=== PATIENT | female | born 1945 | race Caucasian/White ===

== ENCOUNTER 2020-06-02 08:17 | Outpatient (CLI) | payer OTHER, SELFPAY ==
[2020-06-02 08:48] LABS: Hematocrit 31.8 % (37.0-47.0); Hemoglobin 10.3 g/dL (12.0-15.0)
[2020-06-02 08:58] LABS: Hemoglobin A1C 5.9 % (<5.7)
[2020-06-02 08:59] LABS: Blood Urea Nitrogen 33 mg/dL (7-17); Calcium 8.9 mg/dL (8.4-10.2); Carbon Dioxide 21 mmol/L (22-30); Chloride 108 mmol/L (98-107); Cholesterol 200 mg/dL (0-200); Estimated Glomerular Filt Rate 23; Glucose 114 mg/dL (65-105); HDL Direct 48 mg/dL; Potassium 4.5 mmol/L (3.4-5.0); Sodium 137 mmol/L (137-145); Triglycerides 162 mg/dL (<150)
[2020-06-02 09:10] LABS: LDL Cholesterol Direct 100 mg/dL
== END 2020-06-02 08:18 | disposition home or self-care (01) ==
PROVIDERS: PCP Internal Medicine; Visit Provider Internal Medicine
DX: D64.9 Anemia, unspecified (principal); I10 Essential (primary) hypertension; E11.21 Type 2 diabetes mellitus with diabetic nephropathy; E78.5 Hyperlipidemia, unspecified; E55.9 Vitamin D deficiency, unspecified
CPT/HCPCS: 36415; 80048; 80061; 82306; 82607; 83036; 85014; 85018

== ENCOUNTER 2020-07-11 09:44 | Outpatient (CLI) | payer OTHER, SELFPAY ==
[2020-07-11 11:03] LABS: Creatinine Urine 76.9 mg/dL; Total Protein Urine Random 18 mg/dL
[2020-07-11 11:04] LABS: Albumin Level 3.9 g/dL (3.5-5.1); Anion Gap 8 mmol/L (8-16); Blood Urea Nitrogen 25 mg/dL (7-17); Calcium 8.5 mg/dL (8.4-10.2); Carbon Dioxide 23 mmol/L (22-30); Chloride 105 mmol/L (98-107); Estimated Glomerular Filt Rate 23; Glucose 119 mg/dL (65-105); Phosphorus 2.8 mg/dL (2.5-4.5); Potassium 4.1 mmol/L (3.4-5.0); Sodium 136 mmol/L (137-145)
[2020-07-11 11:16] LABS: Parathyroid Intact 211.7 pg/mL (7.5-53.5)
== END 2020-07-11 09:45 | disposition home or self-care (01) ==
LOC: ANHLAB 09:46
PROVIDERS: PCP Internal Medicine; Visit Provider Internal Medicine Nephrology
DX: I12.9 Hypertensive chronic kidney disease with stage 1 through stage 4 chronic kidney disease, or unspecified chronic kidney disease (principal); N18.4 Chronic kidney disease, stage 4 (severe); E11.29 Type 2 diabetes mellitus with other diabetic kidney complication; R80.8 Other proteinuria
CPT/HCPCS: 36415; 80069; 82570; 83970; 84156

== ENCOUNTER 2020-11-06 09:42 | Outpatient (CLI) | payer OTHER, SELFPAY ==
[2020-11-06 10:19] LABS: Albumin Level 3.7 g/dL (3.5-5.1); Anion Gap 7 mmol/L (8-16); Blood Urea Nitrogen 26 mg/dL (7-17); Calcium 8.6 mg/dL (8.4-10.2); Carbon Dioxide 25 mmol/L (22-30); Chloride 103 mmol/L (98-107); Estimated Glomerular Filt Rate 22; Glucose 122 mg/dL (65-105); Phosphorus 2.9 mg/dL (2.5-4.5); Sodium 135 mmol/L (137-145)
[2020-11-06 10:23] LABS: Creatinine Urine 136.6 mg/dL; Total Protein Urine Random 26 mg/dL; Ur Ttl Prot Creatinine Ratio 0.19 mg/mg (0-0.20)
[2020-11-06 10:32] LABS: Parathyroid Intact 196.4 pg/mL (7.5-53.5)
[2020-11-06 11:04] LABS: Vitamin D 25 Hydroxy 63.4 ng/mL
== END 2020-11-06 09:43 | disposition home or self-care (01) ==
PROVIDERS: PCP Internal Medicine; Visit Provider Internal Medicine Nephrology
DX: N18.4 Chronic kidney disease, stage 4 (severe) (principal); I12.9 Hypertensive chronic kidney disease with stage 1 through stage 4 chronic kidney disease, or unspecified chronic kidney disease; E11.29 Type 2 diabetes mellitus with other diabetic kidney complication; R80.8 Other proteinuria
CPT/HCPCS: 36415; 80069; 82306; 82570; 83970; 84156

== ENCOUNTER 2020-12-04 09:49 | Outpatient (CLI) | payer OTHER, SELFPAY ==
[2020-12-04 10:58] LABS: Alanine Aminotransferase 9 U/L (4-35); Albumin Level 3.7 g/dL (3.5-5.1); Alkaline Phosphatase 112 U/L (38-126); Anion Gap 4 mmol/L (8-16); Aspartate Amino Transferase 19 U/L (14-36); Bilirubin,Total 0.4 mg/dL (0.2-1.3); Blood Urea Nitrogen 28 mg/dL (7-17); Calcium 8.4 mg/dL (8.4-10.2); Carbon Dioxide 27 mmol/L (22-30); Chloride 104 mmol/L (98-107); Cholesterol 230 mg/dL (0-200); Estimated Glomerular Filt Rate 24; Glucose 123 mg/dL (65-105); HDL Direct 52 mg/dL; Potassium 4.1 mmol/L (3.4-5.0); Sodium 135 mmol/L (137-145); Triglycerides 156 mg/dL (<150)
[2020-12-04 11:02] LABS: Hemoglobin A1C 5.8 % (<5.7)
[2020-12-04 11:12] LABS: LDL Cholesterol Direct 129 mg/dL
[2020-12-04 11:40] LABS: Vitamin D 25 Hydroxy 54.8 ng/mL
== END 2020-12-04 09:50 | disposition home or self-care (01) ==
PROVIDERS: PCP Internal Medicine; Visit Provider Nurse Practitioner
DX: E78.49 Other hyperlipidemia (principal); E11.9 Type 2 diabetes mellitus without complications; E53.8 Deficiency of other specified B group vitamins; E55.9 Vitamin D deficiency, unspecified
CPT/HCPCS: 36415; 80053; 80061; 82306; 82607; 83036

== ENCOUNTER 2022-05-15 11:46 | Outpatient (CLI) | payer MEDICARE, SELFPAY ==
[2022-05-15 12:41] LABS: Albumin Level 4.1 g/dL (3.5-5.1); Anion Gap 8 mmol/L (8-16); Blood Urea Nitrogen 46 mg/dL (7-17); Calcium 9.1 mg/dL (8.4-10.2); Carbon Dioxide 22 mmol/L (22-30); Chloride 104 mmol/L (98-107); Estimated Glomerular Filt Rate 22; Glucose 115 mg/dL (65-110); Potassium 4.4 mmol/L (3.4-5.0); Sodium 134 mmol/L (137-145)
[2022-05-15 12:54] LABS: Parathyroid Intact 82.7 pg/mL (7.5-53.5)
[2022-05-15 13:07] LABS: Creatinine Urine 72.3 mg/dL; Total Protein Urine Random 11 mg/dL; Ur Ttl Prot Creatinine Ratio 0.15 mg/mg (0-0.20)
[2022-05-15 13:17] LABS: Vitamin D 25 Hydroxy 59.8 ng/mL
== END 2022-05-15 11:47 | disposition home or self-care (01) ==
PROVIDERS: PCP Internal Medicine; Visit Provider Internal Medicine Nephrology
DX: N18.4 Chronic kidney disease, stage 4 (severe) (principal); E11.29 Type 2 diabetes mellitus with other diabetic kidney complication; I12.9 Hypertensive chronic kidney disease with stage 1 through stage 4 chronic kidney disease, or unspecified chronic kidney disease; E55.9 Vitamin D deficiency, unspecified
CPT/HCPCS: 36415; 80069; 82306; 82570; 83970; 84156

== ENCOUNTER 2022-09-25 13:07 | Outpatient (CLI) | payer MEDICARE, SELFPAY ==
[2022-09-25 13:54] LABS: Anion Gap 14 mmol/L (8-16); Blood Urea Nitrogen 41 mg/dL (7-17); Calcium 8.4 mg/dL (8.4-10.2); Carbon Dioxide 23 mmol/L (22-30); Chloride 100 mmol/L (98-107); Estimated Glomerular Filt Rate 22; Glucose 107 mg/dL (65-110); Phosphorus 3.4 mg/dL (2.5-4.5); Potassium 4.3 mmol/L (3.4-5.0); Sodium 137 mmol/L (137-145)
[2022-09-25 13:58] LABS: Creatinine Urine 75.9 mg/dL; Total Protein Urine Random 15 mg/dL
== END 2022-09-25 13:08 | disposition home or self-care (01) ==
LOC: ANHLAB 13:09
PROVIDERS: PCP Internal Medicine; Visit Provider Internal Medicine Nephrology
DX: N18.4 Chronic kidney disease, stage 4 (severe) (principal); I12.9 Hypertensive chronic kidney disease with stage 1 through stage 4 chronic kidney disease, or unspecified chronic kidney disease; E11.29 Type 2 diabetes mellitus with other diabetic kidney complication; R80.8 Other proteinuria
CPT/HCPCS: 36415; 80069; 82570; 84156

== ENCOUNTER 2022-11-06 10:01 | Outpatient (CLI) | payer MEDICARE, SELFPAY ==
[2022-11-06 11:03] LABS: Alanine Aminotransferase 9 U/L (6-35); Albumin Level 4.1 g/dL (3.5-5.1); Alkaline Phosphatase 76 U/L (38-126); Anion Gap 8 mmol/L (8-16); Aspartate Amino Transferase 18 U/L (14-36); Bilirubin,Total 0.3 mg/dL (0.2-1.3); Blood Urea Nitrogen 30 mg/dL (7-17); Calcium 8.5 mg/dL (8.4-10.2); Carbon Dioxide 24 mmol/L (22-30); Chloride 101 mmol/L (98-107); Cholesterol 264 mg/dL (0-200); Estimated Glomerular Filt Rate 23; Glucose 107 mg/dL (65-110); HDL Direct 54 mg/dL; Potassium 4.2 mmol/L (3.4-5.0); Sodium 133 mmol/L (137-145); Triglycerides 177 mg/dL (<150)
[2022-11-06 11:13] LABS: LDL Cholesterol Direct 112 mg/dL
[2022-11-06 11:18] LABS: Hemoglobin A1C 5.7 % (<5.7)
[2022-11-06 11:19] LABS: Creatinine Urine 98.4 mg/dL
[2022-11-06 11:23] LABS: MALB Creatinine Ratio 51.6 mg/g (0-30); Microalbumin Urine Random 50.8 mg/L (0-16.7)
== END 2022-11-06 10:02 | disposition home or self-care (01) ==
PROVIDERS: PCP Internal Medicine; Visit Provider Internal Medicine
DX: E78.5 Hyperlipidemia, unspecified (principal); I10 Essential (primary) hypertension; E11.21 Type 2 diabetes mellitus with diabetic nephropathy
CPT/HCPCS: 36415; 80053; 80061; 82043; 83036

== ENCOUNTER 2023-02-05 11:52 | Outpatient (CLI) | payer MEDICARE, SELFPAY ==
[2023-02-05 12:33] LABS: Creatinine Urine 59.4 mg/dL; Total Protein Urine Random 14 mg/dL; Ur Ttl Prot Creatinine Ratio 0.24 mg/mg (0-0.20)
[2023-02-05 12:40] LABS: Albumin Level 4.1 g/dL (3.5-5.1); Anion Gap 8 mmol/L (8-16); Blood Urea Nitrogen 36 mg/dL (7-17); Calcium 9.2 mg/dL (8.4-10.2); Carbon Dioxide 22 mmol/L (22-30); Chloride 105 mmol/L (98-107); Estimated Glomerular Filt Rate 21; Glucose 94 mg/dL (65-110); Phosphorus 3.9 mg/dL (2.5-4.5); Potassium 4.7 mmol/L (3.4-5.0); Sodium 135 mmol/L (137-145)
[2023-02-05 13:06] LABS: Vitamin D 25 Hydroxy 53.6 ng/mL
[2023-02-05 20:05] LABS: Parathyroid Intact 66.1 pg/mL (7.5-53.5)
== END 2023-02-05 11:53 | disposition home or self-care (01) ==
PROVIDERS: PCP Internal Medicine; Visit Provider Internal Medicine Nephrology
DX: N18.4 Chronic kidney disease, stage 4 (severe) (principal); E11.22 Type 2 diabetes mellitus with diabetic chronic kidney disease; I12.9 Hypertensive chronic kidney disease with stage 1 through stage 4 chronic kidney disease, or unspecified chronic kidney disease; E55.9 Vitamin D deficiency, unspecified; N25.81 Secondary hyperparathyroidism of renal origin
CPT/HCPCS: 36415; 80069; 82306; 82570; 83970; 84156

== ENCOUNTER 2023-05-07 17:00 | Outpatient (CLI) | payer MEDICARE, SELFPAY ==
[2023-05-07 19:39] LABS: Hemoglobin A1C 5.4 % (<5.7)
[2023-05-08 12:20] LABS: Alanine Aminotransferase 12 U/L (6-35); Albumin Level 4.1 g/dL (3.5-5.1); Alkaline Phosphatase 86 U/L (38-126); Anion Gap 11 mmol/L (8-16); Aspartate Amino Transferase 19 U/L (14-36); Bilirubin,Total 0.3 mg/dL (0.2-1.3); Blood Urea Nitrogen 27 mg/dL (7-17); Calcium 8.8 mg/dL (8.4-10.2); Carbon Dioxide 22 mmol/L (22-30); Chloride 102 mmol/L (98-107); Cholesterol 237 mg/dL (0-200); Estimated Glomerular Filt Rate 23; Glucose 101 mg/dL (65-110); HDL Direct 54 mg/dL; LDL Cholesterol Direct 117 mg/dL; Potassium 4.1 mmol/L (3.4-5.0); Sodium 135 mmol/L (137-145); Triglycerides 169 mg/dL (<150)
== END 2023-05-07 17:01 | disposition home or self-care (01) ==
LOC: ANHLAB 17:02
PROVIDERS: PCP Internal Medicine; Visit Provider Nurse Practitioner
DX: E78.5 Hyperlipidemia, unspecified (principal); E11.21 Type 2 diabetes mellitus with diabetic nephropathy; E55.9 Vitamin D deficiency, unspecified
CPT/HCPCS: 36415; 80053; 80061; 82306; 83036

== ENCOUNTER 2023-06-11 12:55 | Outpatient (CLI) | payer MEDICARE, SELFPAY ==
[2023-06-11 13:45] LABS: Creatinine Urine 50.4 mg/dL; Total Protein Urine Random 13 mg/dL; Ur Ttl Prot Creatinine Ratio 0.26 mg/mg (0-0.20)
[2023-06-11 13:47] LABS: Anion Gap 8 mmol/L (8-16); Blood Urea Nitrogen 32 mg/dL (7-17); Calcium 9.3 mg/dL (8.4-10.2); Carbon Dioxide 26 mmol/L (22-30); Chloride 104 mmol/L (98-107); Estimated Glomerular Filt Rate 21; Glucose 117 mg/dL (65-110); Potassium 5.1 mmol/L (3.4-5.0); Sodium 138 mmol/L (137-145)
== END 2023-06-11 12:56 | disposition home or self-care (01) ==
PROVIDERS: PCP Family Medicine; Visit Provider Internal Medicine Nephrology
DX: E11.22 Type 2 diabetes mellitus with diabetic chronic kidney disease (principal); I12.9 Hypertensive chronic kidney disease with stage 1 through stage 4 chronic kidney disease, or unspecified chronic kidney disease; N18.4 Chronic kidney disease, stage 4 (severe)
CPT/HCPCS: 36415; 80069; 82570; 84156

== ENCOUNTER 2023-10-15 12:51 | Outpatient (CLI) | payer MEDICARE, SELFPAY ==
[2023-10-15 13:36] LABS: Creatinine Urine 61.6 mg/dL; Total Protein Urine Random 13 mg/dL; Ur Ttl Prot Creatinine Ratio 0.21 mg/mg (0-0.20)
[2023-10-15 13:39] LABS: Albumin Level 3.7 g/dL (3.5-5.1); Anion Gap 11 mmol/L (8-16); Blood Urea Nitrogen 30 mg/dL (7-17); Carbon Dioxide 19 mmol/L (22-30); Chloride 96 mmol/L (98-107); Estimated Glomerular Filt Rate 23; Glucose 137 mg/dL (65-110); Phosphorus 3.6 mg/dL (2.5-4.5); Potassium 4.3 mmol/L (3.4-5.0); Sodium 126 mmol/L (137-145)
[2023-10-15 13:51] LABS: Parathyroid Intact 55.3 pg/mL (7.5-53.5)
[2023-10-15 14:17] LABS: Vitamin D 25 Hydroxy 80.3 ng/mL
== END 2023-10-15 12:52 | disposition home or self-care (01) ==
PROVIDERS: PCP Family Medicine; Visit Provider Internal Medicine Nephrology
DX: E55.9 Vitamin D deficiency, unspecified (principal); E11.22 Type 2 diabetes mellitus with diabetic chronic kidney disease; N25.81 Secondary hyperparathyroidism of renal origin; I12.9 Hypertensive chronic kidney disease with stage 1 through stage 4 chronic kidney disease, or unspecified chronic kidney disease; N18.9 Chronic kidney disease, unspecified
CPT/HCPCS: 36415; 80069; 82306; 82570; 83970; 84156

== ENCOUNTER 2023-11-04 10:30 | Outpatient (CLI) | payer MEDICARE, SELFPAY ==
--- NOTE | ~2023-11-04 | XR_ITS ---
Clinical Indication: Tachycardia, shortness of breath PA and lateral views of the chest: Comparison: None Findings: The lungs are clear, without evidence of focal consolidation or pleural effusion. Cardiome diastinal silhouette is within normal limits. Bones and soft tissues are unremarkable. Impression: Normal chest. Reviewed, dictated and finalized at location . OR REGULATORY AFFAIRS SPECIALIST Impression: Normal chest.
[2023-11-04 11:25] LABS: Immature Granulocyte Absolute 0.09 K/mm3 (0.00-0.031); Immature Granulocyte Percent A 2.5 % (0-0.5); Immature Platelet Fraction Pct 1.6 % (0.9-11.2); Lymphocytes Absolute Auto 0.68 K/mm3 (0.9-3.2); Lymphocytes Percent Auto 19.2 % (18.3-44.2); Mean Corpuscular HGB Conc 31.1 g/dl (32-36); Mean Corpuscular Hemoglobin 37.7 pg (26-34); Mean Corpuscular Volume 121.3 fl (80-100); Mean Platelet Volume 9.6 fl (7.4-10.4); Monocytes Absolute Auto 2.3 K/mm3 (0.1-0.6); Monocytes Percent Auto 65.8 % (2.6-8.5); Neutrophils Absolute Auto 0.4 K/mm3 (1.3-6.7); Neutrophils Percent Auto 12.5 % (45.5-73.1); Nucleated Red Blood Cells Absolute Auto 0.1 K/mm3 (0.0-0.012); Nucleated Red Blood Cells Perc 2.5 % (0.0-0.2); Platelet Count Result 34 k/mm3 (150-375); Red Blood Count 1.22 M/mm3 (4.2-5.4); White Blood Count 3.5 K/mm3 (4.5-10.0)
[2023-11-04 11:32] LABS: Hemoglobin 4.6 g/dL (12.0-15.0)
[2023-11-04 11:33] LABS: Hematocrit 14.8 % (37.0-47.0)
[2023-11-04 11:35] LABS: Alanine Aminotransferase 12 U/L (6-35); Albumin Level 3.7 g/dL (3.5-5.1); Alkaline Phosphatase 70 U/L (38-126); Anion Gap 13 mmol/L (8-16); Aspartate Amino Transferase 16 U/L (14-36); Bilirubin,Total 0.4 mg/dL (0.2-1.3); Blood Urea Nitrogen 35 mg/dL (7-17); Calcium 8.3 mg/dL (8.4-10.2); Carbon Dioxide 17 mmol/L (22-30); Chloride 101 mmol/L (98-107); Estimated Glomerular Filt Rate 19; Glucose 144 mg/dL (65-110); Potassium 4.5 mmol/L (3.4-5.0); Sodium 131 mmol/L (137-145)
[2023-11-04 11:43] LABS: NT Pro B Type Natriuretic Pept 4090 pg/mL (19.9-100)
== END 2023-11-04 10:31 | disposition home or self-care (01) ==
LOC: ANHLAB 10:37
PROVIDERS: PCP Family Medicine; Visit Provider Nurse Practitioner Family
DX: R06.02 Shortness of breath (principal); R00.0 Tachycardia, unspecified
CPT/HCPCS: 36415; 71046; 80053; 83880; 85025; 85055

== ENCOUNTER 2023-11-04 12:23 | Inpatient (IN) | payer MEDICARE, SELFPAY ==
[2023-11-04] VITALS (14 sets, daily range): BP systolic 120–189; BP diastolic 45–109; PULSE 92–111; RESP 9–20; TEMP 36.4–37.1; O2SAT 100
--- NOTE | ~2023-11-04 | BM_ITS ---
EXAMINATION: CCL bone marrow asp w bx diag DATE: 11/06/2023 16:23 INDICATION: Pancytopenia. TECHNIQUE: A time-out was performed to verify the patient's name, date of , and procedure to b e performed. The procedure including the risks, benefits, and alternatives was discussed with the pat ient. Risks discussed included bleeding and infection. The patient understood the risks and agreed to proceed. The skin overlying the left ilium was prepped and draped in usual sterile fashion. Anesth etic was administered with 1% lidocaine subcutaneously. Moderate sedation was achieved with 1 mg Vers ed IV and 50 mcg fentanyl IV. An 11 gauge needle was inserted into the ilium with fluoroscopic kiet nce. Bone marrow was aspirated. An 8 gauge needle was then inserted into the ilium with fluoroscopic guidance. A core bone marrow biopsy was obtained. There were no immediate complications. Fluoroscopy exposure time was 0.0 minutes. The total number of images was 6. FINDINGS: Real-time fluoroscopy demonstrates a marker overlying the left posterior superior iliac spi ne. IMPRESSION: 1. Fluoro-guided bone marrow aspiration. 2. Fluoro-guided bone marrow core biopsy. Reviewed, dictated and finalized at location A. CAL CLAIMS REPRESENTATIVE
--- NOTE | ~2023-11-04 | XR_ITS ---
EXAMINATION: [id number]_[id number] DATE: 11/07/2023 13:12 INDICATION: Left knee injury and pain. TECHNIQUE: 2 views of left knee were obtained. COMPARISON: None. FINDINGS: Bone alignment is normal. No fracture. There is moderate osteoarthritis of medial compartme nt and mild osteoarthritis of lateral and patellofemoral compartments. There is a moderate-sized knee joint effusion. IMPRESSION: 1. Moderate left knee osteoarthritis. 2. Moderate-sized left knee joint effusion. Reviewed, dictated and finalized at location A. FICIAL STONE SETTER
--- NOTE | ~2023-11-04 | XR_ITS ---
EXAMINATION: XR femur LT min 2V DATE: 11/07/2023 13:12 INDICATION: Left thigh injury and pain. TECHNIQUE: 2 views of left femur on 4 radiographs were obtained. COMPARISON: None. FINDINGS: Bone alignment is normal. No fracture. There is moderate left knee osteoarthritis. There is a moderate-sized knee joint effusion. IMPRESSION: 1. Moderate left knee osteoarthritis. 2. Moderate-sized left knee joint effusion. Reviewed, dictated and finalized at location A. MASTER/MISTRESS
--- NOTE | ~2023-11-04 | CT_ITS ---
EXAMINATION: CT abdomen pelvis wo con DATE: 11/04/2023 21:20 INDICATION: crissy hematuria, weakness, anemia TECHNIQUE: Computed tomography (CT) of the abdomen and pelvis was performed without intravenous contr ast. Automated exposure control and iterative reconstruction technique were employed. The dose-length product was 1326.88 mGy-cm. COMPARISON: None. FINDINGS: Lower thorax: Coronary artery and aortic valve calcification Liver: Normal. Biliary/Gallbladder: Gallbladder is normal. No bile duct dilation. Pancreas: No mass or duct dilation. Spleen: Normal. Adrenals:No mass. Kidneys: Left renal atrophy. Nonobstructing 2 mm left upper pole calcification. Subcentimeter right m idpole hyperdensity, likely proteinaceous or hemorrhagic cyst. 6 mm calcification in a mildly dilated right upper pole calyx, which does not appear to obstruct the calyx. 3 mm nonobstructing right midpo le calcification. No hydronephrosis or suspicious mass. GI tract: No small or large bowel dilation. Normal appendix. Mesentery/Peritoneum: No ascites, mass, or free air. Retroperitoneum: No mass. Pelvis: Pelvic organs are within normal limits. Subcentimeter right ovarian cyst which requires no ad ditional evaluation at this time. Soft Tissues: Soft tissues and body wall unremarkable. Bones: No acute osseous finding. IMPRESSION: Bilateral nephrolithiasis. 6 mm renal stone in a presumably chronically mildly dilated right upper pole calyx. No distal stones or evidence of obstructive uropathy. No acute abdominopelvic process detected. Reviewed, dictated and finalized at location K. GE REPAIRER IMPRESSION: Bilateral nephrolithiasis. 6 mm renal stone in a presumably chronically mildly dilated right upper pole ca lyx. No distal stones or evidence of obstructive uropathy. No acute abdominopelvic process detected.
--- NOTE | ~2023-11-04 | XR_ITS ---
EXAMINATION: XR hip LT 2V w AP pelvis DATE: 11/07/2023 13:12 INDICATION: Left hip injury and pain. TECHNIQUE: An anteroposterior view of the pelvis and 2 views of left hip were obtained. COMPARISON: None. FINDINGS: Bone alignment is normal. No fracture. There is mild right hip osteoarthritis. There is sev ere lumbar spondylosis. IMPRESSION: 1. No fracture. Reviewed, dictated and finalized at location A. DENCE SUPERVISOR IMPRESSION: 1. No fracture.
--- NOTE | 2023-11-04 12:38 | ECG_ITS ---
Measurements Intervals [place] Rate: 110 P: 96 CA: 131 QRS: -1 QRSD: 82 T: 148 QT: 303 QTc: 411 Interpretive Statements SINUS TACHYCARDIA LOW QRS VOLTAGE [QRS DEFLECTION < 0.5/1.0 mV IN LIMB/CHEST LEADS] POSSIBLE INFERIOR MYOCARDIAL INFARCTION , PROBABLY OLD [30 ms Q WAVE IN II/aVF] ABNORMAL ECG NO PREVIOUS ECG AVAILABLE FOR COMPARISON Electronically Signed On 11-05-2023 10:28:18 MECHANICAL DETAILER by Joaquín Duque M.D.
[2023-11-04 13:02] LABS: Immature Granulocyte Absolute 0.12 K/mm3 (0.00-0.031); Immature Granulocyte Percent A 4.6 % (0-0.5); Immature Platelet Fraction Pct 1.4 % (0.9-11.2); Lymphocytes Absolute Auto 0.54 K/mm3 (0.9-3.2); Lymphocytes Percent Auto 20.7 % (18.3-44.2); Mean Corpuscular HGB Conc 30.8 g/dl (32-36); Mean Corpuscular Hemoglobin 37.2 pg (26-34); Mean Corpuscular Volume 120.7 fl (80-100); Monocytes Absolute Auto 1.6 K/mm3 (0.1-0.6); Monocytes Percent Auto 61.3 % (2.6-8.5); Neutrophils Absolute Auto 0.4 K/mm3 (1.3-6.7); Neutrophils Percent Auto 13.4 % (45.5-73.1); Nucleated Red Blood Cells Absolute Auto 0.1 K/mm3 (0.0-0.012); Nucleated Red Blood Cells Perc 2.7 % (0.0-0.2); Platelet Count Result 33 k/mm3 (150-375); Red Blood Count 1.21 M/mm3 (4.2-5.4); Red Cell Distribution Width 14.9 % (11.5-14.5); White Blood Count 2.6 K/mm3 (4.5-10.0)
[2023-11-04 13:11] LABS: Alanine Aminotransferase 11 U/L (6-35); Albumin Level 3.7 g/dL (3.5-5.1); Alkaline Phosphatase 79 U/L (38-126); Anion Gap 13 mmol/L (8-16); Aspartate Amino Transferase 17 U/L (14-36); Bilirubin,Total 0.4 mg/dL (0.2-1.3); Blood Urea Nitrogen 36 mg/dL (7-17); Calcium 8.4 mg/dL (8.4-10.2); Carbon Dioxide 17 mmol/L (22-30); Chloride 99 mmol/L (98-107); Estimated CRCL calculation 20 ml/min; Estimated Glomerular Filt Rate 20; Glucose 146 mg/dL (65-110); Potassium 4.4 mmol/L (3.4-5.0); Sodium 129 mmol/L (137-145)
[2023-11-04 13:15] LABS: Hematocrit 14.6 % (37.0-47.0); Hemoglobin 4.5 g/dL (12.0-15.0)
[2023-11-04 13:39] LABS: Hypochromasia 3+ (NORMAL); Platelet Estimate Decreased (Adequate); Schistocytes None Seen (NORMAL)
[2023-11-04 13:40] LABS: Stomatocytes 2+ (NORMAL)
--- NOTE | 2023-11-04 14:03 | ED.RECABL ---
HPI - Recheck/Abnormal Lab/Rx General Chief Complaint: Recheck/Abnormal Lab/Rx Stated Complaint: needs transfusion Time Seen by Provider: 11/04/23 13:16 History of Present Illness HPI narrative: Patient is a 78-year-old female who presents emergency department this afternoon from a doctor's office due to concern for anemia with a hemoglobin of 4.5. Patient's provider called our facility and did inform us that the patient is coming. Patient denies any history of GI bleed is currently denying hemoptysis, hematemesis, melena or hematochezia. Patient admits that she has suffered from anemia pretty much all of her life and is a poor historian regarding the nature of her anemia. Patient states that when she was younger before turning 19 she remembers a time period where she needed to go see a doctor and needed to have weekly shots for her anemia but is unsure what those shots. 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 patient has not required any transfusions since then. Patient states that she is otherwise not complaining of any symptoms and states that the only symptom she is mild shortness of breath. Patient denies any additional symptoms including chest pain, nausea, vomiting, abdominal pain, dysuria, hematuria, constipation, diarrhea, melena, hematochezia, fevers or chills. Patient also denies any headaches, dizziness, lightheadedness, blurry visions, focal weakness, numbness and or tingling. There are no other modifying, alleviating, or precipitating factors at this time. Related Data Home Medications Medication Instructions Recorded Confirmed acetaminophen 325 mg tablet 650 mg PO Q6H PRN 12/08/19 11/04/23 (Tylenol) Allergies Allergy/AdvReac Type Severity Reaction Status Date / Time amlodipine Allergy Mild pt does Verified 11/04/23 12:34 not remember atenolol Allergy Mild heart Verified 11/04/23 12:34 racing celecoxib Allergy Mild throat Verified 11/04/23 12:34 swells chlordiazepoxide Allergy Mild pt does Verified 11/04/23 12:34 not remember codeine Allergy Mild pass out Verified 11/04/23 12:34 diazepam Allergy Mild pt does Verified 11/04/23 12:34 not remember furosemide Allergy Mild pt does Verified 11/04/23 12:34 not remember metoprolol Allergy Mild racing Verified 11/04/23 12:34 heart propranolol Allergy Mild racing Verified 11/04/23 12:34 heart rofecoxib Allergy Mild pt does Verified 11/04/23 12:34 not remember Review of Systems Review of Systems: All systems are reviewed and are negative unless stated otherwise in the HPI. [facility] Past Medical History Medical History CKD (chronic kidney disease) Essential (primary) hypertension History of Rodriguez's sarcoma Hyperlipidemia Type 2 diabetes mellitus with diabetic nephropathy, without long-term current use of insulin Family History Family History Mother Diabetes mellitus Hypertension Family history of congestive heart failure, Onset Age: 99 Sibling Family history of lung cancer Social History Social History Smoking status: Former smoker Smoking end date: 11/24/1965 Alcohol intake: never Substance use: never Substance use type: does not use Lack of Transportation: No Lack of Food: Never True Current Housing: I Have Housing Concerned About Future Housing: No Difficulty Paying Gas/Electric Bills: No Difficulty Paying for Meds: YES Currently Unemployed: No Education: High School Diploma/GED Difficulty w/ Childcare or Family Care: No Living arrangements: with family Gender identity (if verbalized by the patient): Female Exam Narrative:
--- NOTE | 2023-11-04 15:40 | PC.NURSE ---
Pt assisted to BSC voided pink tinge urine with small blood clots. Pt denies hematuria prior to ER arrival. Pt states she feels the bleeding is coming from her vagina. Dr. Mcnair informed.
[2023-11-04 15:46] LABS: Iron 136 ug/dL (37-170)
[2023-11-04 15:52] LABS: Transferrin 185 mg/dL (206-381)
[2023-11-04 15:56] LABS: Percent Iron Saturation 57 % (20-50)
[2023-11-04] MEDS: TUBING, BLOOD SET 1 EACH XX (16:01)
[2023-11-04] MEDS: SODIUM CHLORIDE 0.9% IV 250 ML 30 ML IV CONT (16:01)
--- NOTE | 2023-11-04 16:47 | PC.NURSE ---
This patient, Marcela Johnson, was admitted to Medical Room 343-01. Patient/family oriented to hospital policies and general routines including ID bracelet, bed and alarms, visiting hours, pain management, procedures, bathroom and other care routines, personal items, smoking policy, room service/diet, and visiting hours. Information on how to activate the Rapid Response Team has been discussed. Patient/Family are encouraged to report perceived risks to care and to ask questions if they do not understand what they are told or what they should do.
[2023-11-04 16:53] LABS: Folic Acid 5.5 ng/mL (2.76->20)
--- NOTE | 2023-11-04 20:29 | PM.IMHP ---
H&P: HPI History of Present Illness Date/Time: 11/04/23 20:29 Chief Complaint: Anemia, Palpitations/SOB Narrative: 78 y/o F presents here with abnormal labs, palpitations, and SOB with PMH of CKD, HTN, Rodriguez sarcoma (treatment from 2009 to 2012), and HLD. Patient saw her PCP today for weakness. She reported that she has been experiencing palpitations/racing heart and shortness of breath with activity for the past few weeks. First noticed episode of palpitations and shortness of breath on , 10/17. Initial episode was transient and short-lived, resolved without intervention. Initially thought symptoms were related to a injury to her left knee and immobility. Reports anemia history, however unsure what cause was. Followed with a provider to receive weekly shots, unsure what shots were. Has received blood transfusions previously, reports this was related to anemia secondary to chemotherapy for her Rodriguez sarcoma. No anemia or transfusions since end of treatment in 2012. Sought care at primary office today. PCP ordered an EKG, CBC, CMP, and BNP as well as a chest x-ray. Workup revealed a low white count of 3.5, anemia at 4.6, hematocrit of 14.8, MCV 121, low neutrophil count at 12.5, and a platelet count of 34. CXR showed normal chest. Patient was sent to the emergency department and labs were repeated, minimal change. Patient denies hemoptysis, hematemesis, melena, and hematochezia. Review of Systems Review of Systems: All systems reviewed & are unremarkable except as noted in HPI and below PMFSH Past Medical History Medical History (Updated 11/05/23 @ 00:15 by Jeannie Pichardo APRN) CKD (chronic kidney disease) Essential (primary) hypertension History of Rodriguez's sarcoma Hyperlipidemia Type 2 diabetes mellitus with diabetic nephropathy, without long-term current use of insulin Last A1c 5.4 on 05/07/2023. Not currently on medications as of 11/05/2023. Family History Family History Mother Diabetes mellitus Hypertension Family history of congestive heart failure, Onset Age: 99 Sibling Family history of lung cancer Social History Social History Smoking status: Former smoker Smoking end date: 11/24/1965 Alcohol intake: never Substance use: never Substance use type: does not use Lack of Transportation: No Lack of Food: Never True Current Housing: I Have Housing Concerned About Future Housing: No Difficulty Paying Gas/Electric Bills: No Difficulty Paying for Meds: YES Currently Unemployed: No Education: High School Diploma/GED Difficulty w/ Childcare or Family Care: No Living arrangements: with family Gender identity (if verbalized by the patient): Female Spiritual care concerns: No Meds Home Medications and Allergies Home Medications Medication Instructions Recorded Confirmed Type acetaminophen 325 mg tablet 650 mg PO Q6H PRN Pain (Scale 12/08/19 11/04/23 History (Tylenol) Score 1-3) omeprazole 20 mg capsule,delayed 20 mg PO DAILY #90 caps 12/21/20 11/04/23 Rx release lisinopril 20 mg tablet 20 mg PO DAILY #90 tabs 07/08/23 11/04/23 Rx hydrochlorothiazide 25 mg tablet 25 mg PO DAILY #90 tabs 10/27/23 11/04/23 Rx Vitamin D3 10,000 units PO DAILY 11/04/23 11/04/23 History calcitriol 0.25 mcg capsule 0.25 mcg PO DAILY 11/04/23 11/04/23 History Allergies Allergy/AdvReac Type Severity Reaction Status Date / Time amlodipine Allergy Mild pt does Verified 11/04/23 12:34 not remember atenolol Allergy Mild heart Verified 11/04/23 12:34 racing celecoxib Allergy Mild throat Verified 11/04/23 12:34 swells chlordiazepoxide Allergy Mild pt does Verified 11/04/23 12:34 not remember codeine Allergy Mild pass out Verified 11/04/23 12:34 diazepam Allergy Mild pt does Verified 11/04/23 12:34 not remember furo
[2023-11-04 21:22] LABS: Appearance Urine Cloudy (Clear); Bacteria Urine None Seen /hpf; Bilirubin Urine Negative (Negative); Blood Urine 3+ (Negative); Color Urine Yellow (Yellow); Glucose Urine UA Negative (Negative); Ketones Urine Negative (Negative); Leukocyte Esterase Ur Negative LEU/UL (Negative); Nitrate Urine Negative (Negative); Non Pathogenic Casts 0-2; Protein Urine 1+ mg/dL (Negative); Specific Grav Ur 1.012 (1.001-1.035); Squamous Epithelial Cell Urine None seen /hpf (Few); Urobilinogen Urine 0.2 mg/dL (<2.0); WBC Urine 0-5 /hpf; pH Urine 5.5 (5.0-9.0)
[2023-11-04 21:27] LABS: Add Urine Microscopic? YES
[2023-11-04 23:47] LABS: Hemoglobin 6.8 g/dL (12.0-15.0)
[2023-11-04 23:48] LABS: Hematocrit 20.6 % (37.0-47.0)
[2023-11-05] VITALS (10 sets, daily range): BP systolic 123–157; BP diastolic 46–78; PULSE 92–118; RESP 16–21; TEMP 36.4–36.8; O2SAT 98–100
--- NOTE | 2023-11-05 | ECHO_ITS ---
Patient Info Name: Marcela Johnson Age: 78 years : 1945 Gender: Female Ht: 63 in Wt: 208 lbs BSA: 2.09 m2 HR: 102 bpm BP: 149 / 62 mmHg Heart Rhythm: Tachycardia Technical Quality: Good Exam Date: 11/05/2023 8:39 AM Exam Location: Echo Lab Patient Status: Inpatient Admit Date: 11/04/2023 Staff Ordering Physician: Jeannie Pichardo APRN Dining Manager: Dilma Flor RDCS Attending Provider: Marleny Webb MD Referring Physician: Marino CHARLES; Exam Type: CA echo doppler color flow Study Info Indications - lower extremity swelling Complete two-dimensional, color flow and Doppler transthoracic echocardiogram is performed. Summary 1. Complete two-dimensional, color flow and Doppler transthoracic echocardiogram is performed. 2. Left ventricular chamber dimension is normal. 3. Left ventricular systolic function is normal, estimated at 60-65%. 4. There is mildly increased left ventricular wall thickness. 5. Right ventricular systolic function is normal. 6. There is mild mitral valve regurgitation. 7. There is mild tricuspid valve regurgitation. Left Ventricle Left ventricular chamber dimension is normal. Left ventricular systolic function is normal, estimated at 60-65%. There is mildly increased left ventricular wall thickness. Right Ventricle Right ventricular chamber dimension is normal. Right ventricular systolic function is normal. Left Atria Left atrial chamber dimension is normal. Right Atria Right atrial chamber dimension is normal. Atrial Septum Intact interatrial septum visualized by color flow imaging. Aortic Valve The aortic valve is probable trileaflet. There is no aortic valve stenosis. There is no aortic valve regurgitation. There is mild aortic valve calcification. Pulmonic Valve The pulmonic valve is not well visualized. Mitral Valve There is mild mitral valve regurgitation. The mitral valve annulus is mildly calcified. Tricuspid Valve There is mild tricuspid valve regurgitation. Pericardium/Pleural The pericardium appears epicardial fat pad. There is no pericardial effusion. Inferior Vena Cava Normal inferior vena cava with >50% collapse upon inspiration consistent with normal right atrial pressure, 3 mmHg. Aorta The aortic root size at the sinus of Valsalva is normal. Left Ventricular Outflow Tract Name Value Normal LVOT 2D LVOT Diameter 1.9 cm LVOT Doppler LVOT Peak Gradient 3 mmHg LVOT Mean Gradient 2 mmHg LVOT VTI 31 cm LVOT VTI/AV VTI Ratio 1.1 LVOT Stroke Volume 92 ml LVOT CO 8.3 l/min LVOT CI 3.9 l/min/m2 Pulmonic Valve Name Value Normal RVOT Doppler RVOT Peak Gradient 2 mmHg PV Doppler
[2023-11-05] MEDS: ACETAMINOPHEN 325 MG TABLET 650 MG PO ×3 (01:21→20:20)
[2023-11-05 05:50] LABS: Hematocrit 23.5 % (37.0-47.0); Hemoglobin 7.9 g/dL (12.0-15.0)
[2023-11-05] MEDS: CHOLECALCIFEROL 1,000 UNITS TABLET 10000 UNITS PO (08:06)
[2023-11-05] MEDS: FOLIC ACID 1 MG TABLET PO (08:06)
[2023-11-05] MEDS: hydroCHLOROthiazide 25 MG TABLET PO (08:06)
[2023-11-05] MEDS: lisinopriL 20 MG TABLET PO (08:06)
[2023-11-05] MEDS: calcitrioL 0.25 MCG CAPSULE PO (08:06)
[2023-11-05] MEDS: THIAMINE HCL 100 MG TABLET PO (08:06)
[2023-11-05] MEDS: MULTIVITAMINS THERAPEUTIC TAB (*BKC) 1 TABLET PO (08:06)
--- NOTE | 2023-11-05 09:16 | PDONCCN ---
HPI - Date of Consult Date/Time: 11/05/23 17:42 <Emery Florence - 11/05/23 17:44> 11/05/23 09:16 <Maia Cortés - 11/05/23 09:32> Requesting Physician: Marleny Webb MD <Emery Florence - 11/05/23 17:44> Marleny Webb MD <Maia Cortés - 11/05/23 09:32> Primary Care Provider: Robin Romo MD <Emery Florence - 11/05/23 17:44> Robin Romo MD <Maia Cortés - 11/05/23 09:32> - Consult Narrative Reason for consult: Pancytopenia <Maia Cortés - 11/05/23 09:32> Narrative: Marcela Johnson is a 78 year old female <Emery Florence - 11/05/23 17:44> Marcela Johnson is a 78 year old female with a past medical history of DM, HTN, HLD, and Ewings Sarcoma. She was admitted to the hospital after her PCP lorena labs for shortness of breath, heart palpitations and weakness. Her hgb was found to be at 4.5 and she received 3 units of PRBCs. She states she has been anemic since and used to get shots and liquid in her milk that would turn it black as a child. She states her WBC have always been low as well. Most recently, she feels like she pulled a muscle in her L leg and has made it more difficult to ambulate in addition to her new shortness of breath. In the past, she was treated for Rodriguez Sarcoma and completed chemotherapy in March [address] Wagner at [facility]. She had to receive many PRBC during her chemotherapy treatment due to anemia. She reports blood in her urine. Denies blood in her stool. Unsure of the last colonoscopy date. Has stage 4 kidney disease and follows with Dr. Heaton, last appt 10/15/23 and Cr was 2.10, now at 2.40. Denies liver disease or heavy alcohol intake. Her abdominal CT scan shows normal liver and spleen. Her labs are notable for WBC 2.6, Hgb 4.5--7.9, iron 136, % sat 57, ferritin 494, B12 737, Folate 5.5. <Maia Cortés - 11/05/23 09:59> Review of Systems - Review of Systems All systems reviewed & are unremarkable except as noted in HPI and bel <Maia Cortés - 11/05/23 09:32> - Cardiovascular Reports fast heart rate, Reports shortness of breath with activity <Maia Cortés - 11/05/23 09:32> - Respiratory Reports dyspnea on exertion <ArturoMaia joaquin - 11/05/23 09:32> - Genitourinary Reports blood in urine <Maia Cortés 11/05/23 09:32> - Musculoskeletal Reports abnormal walking (with leg pain) <MooMaia - 11/05/23 09:32> [facility] Medical History: Medical History (Last Updated 11/05/23 @ 00:15 by Jeannie Pichardo APRN) CKD (chronic kidney disease) Essential (primary) hypertension History of Rodriguez's sarcoma Hyperlipidemia Type 2 diabetes mellitus with diabetic nephropathy, without long-term current use of insulin Last A1c 5.4 on 05/07/2023. Not currently on medications as of 11/05/2023. <Emery Florence - 11/05/23 17:44> Medical History (Last Updated 11/05/23 @ 00:15 by Jeannie Pichardo APRN) CKD (chronic kidney disease) Essential (primary) hypertension History of Rodriguez's sarcoma Hyperlipidemia Type 2 diabetes mellitus with diabetic nephropathy, without long-term current use of insulin Last A1c 5.4 on 05/07/2023. Not currently on medications as of 11/05/2023. <Maia Cortés - 11/05/23 09:32> Family History: Family History (Last Reviewed 11/04/23 @ 16:54 by Gely Martinez RN) Mother Diabetes mellitus Hypertension Family history of congestive heart failure, Onset Age: 99 Sibling Family history of lung cancer <Emery Florence - 11/05/23 17:44> Family History (Last Reviewed 11/04/23 @ 16:54 by Gely Martinez RN) Mother Diabetes mellitus Hypertension Family history of congestive heart failure, Onset Age: 99 Sibling Family history of lung cancer <Maia Cortés - 11/05/23 09:32> - Social History Social History: Social History (Last Reviewed 11/04/23 @ 14:03 by Ruben Mcnari MD)
[2023-11-05 09:50] LABS: Immature Reticulocyte Fraction 19.9 % (3.0-15.9); Reticulocyte Hemoglobin Conten 36.2 pg (28.2-35.7); Reticulocyte Percent 1.18 % (0.7-4.3); Reticulocytes Absolute 0.03 M/mm3 (0.02-0.1)
[2023-11-05 09:57] LABS: Lactate Dehydrogenase 244 U/L (120-246)
[2023-11-05] MEDS: SPIRONOLACTONE 12.5 MG TABLET PO ×2 (10:31→17:09)
[2023-11-05] MEDS: PANTOPRAZOLE 40 MG TABLET PO (10:40)
--- NOTE | 2023-11-05 10:52 | PM.IMPN ---
Progress Note: A&P Assessment and Plan (1) Pancytopenia: Code(s): D61.818 - Other pancytopenia Status: Acute Assessment and Plan: CBC showed: WBC of 3.5, RBC of 1.22, HGB of 4.6, HCT of 14.8, MCV of 121 3, MCHC of 31.1, RDW of 15.1, platelet count 34. EKG showed sinus tachycardia with rate of 110, low QRS voltage, possible inferior ND (probably old). Awaiting formal read. CXR showed no acute cardiopulmonary pathology. Unclear etiology. Heme Onc consulted, waiting recs. Iron, TIBC, ferritin, B12, folic acid, and thiamine ordered. Add multivitamin, folic acid, and thiamine. Transfused 2 units. Hemoglobin reassessed 4.8 -> 6.8, will give 3rd unit. Monitor vitals and telemetry. Monitor lab work, add TSH. 11/05: hgb 8.5 today, monitor, plt 25, defer transfusion to heme/onc (2) Weakness: Code(s): R53.1 - Weakness Status: Acute Assessment and Plan: High suspicion for weakness secondary to anemia. Given transfusions. Consider PT/OT eval and treat once hemoglobin stable. May have some degree of deconditioning due to injury to left knee in August. (3) Hematuria: Code(s): R31.9 - Hematuria, unspecified Status: Acute Assessment and Plan: Patient reported hematuria after admission to the floor. Described as bright red. UA: Cloudy, 1+ protein, 3+ blood, 6-10 RBC, otherwise unremarkable. CT of abdomen pelvis without con ordered. Showed bilateral nephrolithiasis. 6 mm renal stone in a presumably chronically mildly dilated right upper pole calyx. No distal stones or evidence of obstructive uropathy. No acute abdominopelvic process detected. Suspect patient passed stone, low suspicion for UTI. Will continue to monitor. (4) Hyponatremia: Code(s): E87.1 - Hypo-osmolality and hyponatremia Status: Acute Assessment and Plan: resolving, monitor (5) Swelling of both lower extremities: Code(s): M79.89 - Other specified soft tissue disorders Status: Acute Assessment and Plan: 1+ pitting edema to bilateral lower extremities. No current shortness of breath or pulmonary edema seen on chest x-ray. BNP elevated at 4090. Echo ordered. No previous on file. Allergy to Lasix. Given that patient will received 3 transfusions and that there was concern for heart failure, start spironolactone as 12.5 b.i.d. monitor daily weights and I&Os. (6) Chronic kidney disease, stage 4 (severe): Code(s): N18.4 - Chronic kidney disease, stage 4 (severe) Status: Acute Assessment and Plan: Creatinine currently 2.4. Baseline creatinine 2.1-2.5 in 2022. GFR 20, ECC 20, BUN 36. Continue home calcitriol. Monitor. 11/05: improving, down to 2, monitor Plan Home Meds/Chronic Conditions -GERD: Continue omeprazole -HTN: Continue home lisinopril, hydrochlorothiazide -OTC/supplements: Continue Tylenol and vitamin D3 Diet: Renal diet GI Prophylaxis: Continuing home omeprazole DVT Prophylaxis: SCDs, pharmacological contraindicated due to current anemia unknown etiology Lines: pIV Code Status: Full code Subjective Date/time seen: 11/05/23 10:52 Interval history: 78-year-old female with history of CKD, hypertension, Rodriguez sarcoma 2013 is presenting with palpitations and shortness of breath and currently being worked up for pancytopenia of unknown etiology. No overnight events noted. No chest pain or shortness of breath. No nausea, vomiting or diarrhea. No fevers or chills. Review of Systems Review of Systems: 12 point review of systems was assessed and was negative except as noted in the HPI Exam Narrative: General: No acute distress, alert and oriented per baseline HEENT: Atraumatic, normocephalic, mucous membranes moist CV: Regular rate and rhythm, S1, S2 Lungs: Clear to auscultation bilaterally, no rales or crackles noted, no wheezes, good air entry Abdomen: Soft, nontender, nondistended Extrem
[2023-11-05 11:12] LABS: Hematocrit 25.2 % (37.0-47.0); Hemoglobin 8.5 g/dL (12.0-15.0); Immature Granulocyte Absolute 0.08 K/mm3 (0.00-0.031); Immature Granulocyte Percent A 2.9 % (0-0.5); Immature Platelet Fraction Pct 1.2 % (0.9-11.2); Lymphocytes Absolute Auto 0.51 K/mm3 (0.9-3.2); Lymphocytes Percent Auto 18.5 % (18.3-44.2); Mean Corpuscular HGB Conc 33.7 g/dl (32-36); Mean Corpuscular Hemoglobin 34.6 pg (26-34); Mean Corpuscular Volume 102.4 fl (80-100); Mean Platelet Volume 9.2 fl (7.4-10.4); Monocytes Absolute Auto 1.9 K/mm3 (0.1-0.6); Neutrophils Absolute Auto 0.3 K/mm3 (1.3-6.7); Neutrophils Percent Auto 11.6 % (45.5-73.1); Nucleated Red Blood Cells Absolute Auto 0.1 K/mm3 (0.0-0.012); Nucleated Red Blood Cells Perc 4.3 % (0.0-0.2); Red Blood Count 2.46 M/mm3 (4.2-5.4); Red Cell Distribution Width 20.6 % (11.5-14.5); White Blood Count 2.8 K/mm3 (4.5-10.0)
[2023-11-05 11:26] LABS: Alanine Aminotransferase 10 U/L (6-35); Albumin Level 3.5 g/dL (3.5-5.1); Alkaline Phosphatase 78 U/L (38-126); Anion Gap 11 mmol/L (8-16); Aspartate Amino Transferase 17 U/L (14-36); Bilirubin,Total 0.9 mg/dL (0.2-1.3); Blood Urea Nitrogen 32 mg/dL (7-17); Calcium 8.6 mg/dL (8.4-10.2); Carbon Dioxide 19 mmol/L (22-30); Chloride 102 mmol/L (98-107); Estimated CRCL calculation 23 ml/min; Estimated Glomerular Filt Rate 24; Glucose 138 mg/dL (65-110); Potassium 4.6 mmol/L (3.4-5.0); Sodium 132 mmol/L (137-145)
[2023-11-05 11:28] LABS: Platelet Count Result 25 k/mm3 (150-375)
[2023-11-05 11:34] LABS: Platelet Estimate Decreased (Adequate); Schistocytes None Seen (NORMAL)
[2023-11-05 11:35] LABS: Hypochromasia 1+ (NORMAL)
[2023-11-06] VITALS (9 sets, daily range): BP systolic 118–134; BP diastolic 49–53; PULSE 52–119; RESP 16–21; TEMP 36.1–36.9; O2SAT 98–100
[2023-11-06 05:56] LABS: Hematocrit 24.1 % (37.0-47.0); Hemoglobin 7.9 g/dL (12.0-15.0); Immature Platelet Fraction Pct 1.7 % (0.9-11.2); Mean Corpuscular HGB Conc 32.8 g/dl (32-36); Mean Corpuscular Hemoglobin 34.1 pg (26-34); Mean Corpuscular Volume 103.9 fl (80-100); Mean Platelet Volume 9.6 fl (7.4-10.4); Red Blood Count 2.32 M/mm3 (4.2-5.4); Red Cell Distribution Width 20.5 % (11.5-14.5); White Blood Count 3.1 K/mm3 (4.5-10.0)
[2023-11-06 06:08] LABS: Alanine Aminotransferase 10 U/L (6-35); Albumin Level 3.5 g/dL (3.5-5.1); Alkaline Phosphatase 66 U/L (38-126); Anion Gap 10 mmol/L (8-16); Aspartate Amino Transferase 19 U/L (14-36); Bilirubin,Total 0.8 mg/dL (0.2-1.3); Blood Urea Nitrogen 35 mg/dL (7-17); Calcium 8.6 mg/dL (8.4-10.2); Carbon Dioxide 19 mmol/L (22-30); Chloride 102 mmol/L (98-107); Estimated CRCL calculation 21 ml/min; Estimated Glomerular Filt Rate 22; Glucose 117 mg/dL (65-110); Phosphorus 3.3 mg/dL (2.5-4.5); Potassium 4.1 mmol/L (3.4-5.0); Sodium 131 mmol/L (137-145)
[2023-11-06 07:39] LABS: Platelet Count Result 23 k/mm3 (150-375)
[2023-11-06 07:56] LABS: Band Neutrophils Percent 4 % (0-6); Blastocytes 2 %; Lymphocytes Absolute Manual 2.04 K/mm3 (1.1-4.5); Lymphocytes Percent Manual 66 % (18-44); Monocytes Absolute Manual 0.74 K/mm3 (0.1-0.90); Monocytes Percent Manual 24 % (3-9); Myelocytes Percent 2 %; Platelet Estimate Decreased (Adequate); Promyelocytes Percent 2 %; Total Cells Counted 50
[2023-11-06 07:57] LABS: Anisocytosis 1+ (NORMAL); Schistocytes None Seen (NORMAL)
--- NOTE | 2023-11-06 10:02 | WPDMODSED ---
Moderate Sedation Note-Pt Data Patient Data Diagnosis: Pancytopenia. Present Complaint: Pancytopenia. Procedure to be performed/Plan: Fluoro-guided bone marrow biopsy of ilium. Allergies Allergy/AdvReac Type Severity Reaction Status Date / Time amlodipine Allergy Mild pt does Verified 11/04/23 12:34 not remember atenolol Allergy Mild heart Verified 11/04/23 12:34 racing celecoxib Allergy Mild throat Verified 11/04/23 12:34 swells chlordiazepoxide Allergy Mild pt does Verified 11/04/23 12:34 not remember codeine Allergy Mild pass out Verified 11/04/23 12:34 diazepam Allergy Mild pt does Verified 11/04/23 12:34 not remember furosemide Allergy Mild pt does Verified 11/04/23 12:34 not remember metoprolol Allergy Mild racing Verified 11/04/23 12:34 heart propranolol Allergy Mild racing Verified 11/04/23 12:34 heart rofecoxib Allergy Mild pt does Verified 11/04/23 12:34 not remember Home Medications Medication Instructions Recorded Confirmed Type acetaminophen 325 mg tablet 650 mg PO Q6H PRN Pain (Scale 12/08/19 11/04/23 History (Tylenol) Score 1-3) omeprazole 20 mg capsule,delayed 20 mg PO DAILY #90 caps 12/21/20 11/04/23 Rx release lisinopril 20 mg tablet 20 mg PO DAILY #90 tabs 07/08/23 11/04/23 Rx hydrochlorothiazide 25 mg tablet 25 mg PO DAILY #90 tabs 10/27/23 11/04/23 Rx Vitamin D3 10,000 units PO DAILY 11/04/23 11/04/23 History calcitriol 0.25 mcg capsule 0.25 mcg PO DAILY 11/04/23 11/04/23 History Current Medications: Active Medications Acetaminophen (Acetaminophen 325 Mg Tablet) 650 mg PO Q6H PRN PRN Reason: Pain (Scale Score 1-3) Last Admin: 11/05/23 20:20 Dose: 650 mg Calcitriol (Calcitriol 0.25 Mcg Capsule) 0.25 mcg PO DAILY [facility] Last Admin: 11/05/23 08:06 Dose: 0.25 mcg Folic Acid (Folic Acid 1 Mg Tablet) 1 mg PO DAILY [facility] Last Admin: 11/05/23 08:06 Dose: 1 mg Hydrochlorothiazide (Hydrochlorothiazide 25 Mg Tablet) 25 mg PO DAILY [facility] Last Admin: 11/05/23 08:06 Dose: 25 mg Lisinopril (Lisinopril 20 Mg Tablet) 20 mg PO DAILY [facility] Last Admin: 11/05/23 08:06 Dose: 20 mg Multivitamins Therapeutic (Multivitamins Therapeutic Tab (*Bkc)) 1 tablet PO QAM [facility] Last Admin: 11/05/23 08:06 Dose: 1 tablet Neomycin/Polymyxin/Bacitracin (Neomycin/Polymyxin/Bacitracin Ointment 15 Gm Tube) 1 applic TOPICAL PRN PRN PRN Reason: with dressing changes Pantoprazole Sodium (Pantoprazole 40 Mg Tablet) 40 mg PO DAILY [facility] Last Admin: 11/05/23 10:40 Dose: 40 mg Perflutren Lipid Microsphere (Perflutren Lipid Microspheres 1.5 Ml Vial Diluted To 10 Ml Total Volume) 0 ml IV PUSH ONCE PRN; Protocol PRN Reason: adequate visualization Stop: 11/08/23 00:07 Spironolactone (Spironolactone 12.5 Mg Tablet) 12.5 mg PO BID [facility] Last Admin: 11/05/23 17:09 Dose: 12.5 mg Thiamine HCl (Thiamine Hcl 100 Mg Tablet) 100 mg PO QAM [facility] Last Admin: 11/05/23 08:06 Dose: 100 mg Vitamin D (Cholecalciferol 1,000 Units Tablet) 10,000 units PO DAILY [facility] Stop: 12/05/23 08:59 Last Admin: 11/05/23 08:06 Dose: 10,000 units Sedation/Anesthesia: No previous sedation/anesthesia problems (including family history). [facility] Past Medical History Medical History (Updated 11/05/23 @ 09:32 by Maia Cortés APRN) CKD (chronic kidney disease) Essential (primary) hypertension History of Rodriguez's sarcoma Hyperlipidemia Type 2 diabetes mellitus with diabetic nephropathy, without long-term current use of insulin Last A1c 5.4 on 05/07/2023. Not currently on medications as of 11/05/2023. Family History Family History Mother Diabetes mellitus Hypertension Family history of congestive heart failure, Onset Age: 99 Sibling Family history of lung cancer Social History Social History Smoking status: Former smoker
[2023-11-06] MEDS: hydroCHLOROthiazide 25 MG TABLET PO (12:00)
[2023-11-06] MEDS: THIAMINE HCL 100 MG TABLET PO (12:00)
[2023-11-06] MEDS: MULTIVITAMINS THERAPEUTIC TAB (*BKC) 1 TABLET PO (12:00)
[2023-11-06] MEDS: lisinopriL 20 MG TABLET PO (12:00)
[2023-11-06] MEDS: SPIRONOLACTONE 12.5 MG TABLET PO ×2 (12:00→17:10)
[2023-11-06] MEDS: PANTOPRAZOLE 40 MG TABLET PO (12:00)
[2023-11-06] MEDS: calcitrioL 0.25 MCG CAPSULE PO (12:00)
[2023-11-06] MEDS: FOLIC ACID 1 MG TABLET PO (12:00)
[2023-11-06] MEDS: ACETAMINOPHEN 325 MG TABLET 650 MG PO ×2 (12:03→20:31)
[2023-11-06] MEDS: CHOLECALCIFEROL 1,000 UNITS TABLET 10000 UNITS PO (12:03)
--- NOTE | 2023-11-06 13:25 | PM.IMPN ---
Progress Note: A&P Assessment and Plan (1) Pancytopenia: Code(s): D61.818 - Other pancytopenia Status: Acute Assessment and Plan: CBC showed: WBC of 3.5, RBC of 1.22, HGB of 4.6, HCT of 14.8, MCV of 121 3, MCHC of 31.1, RDW of 15.1, platelet count 34. EKG showed sinus tachycardia with rate of 110, low QRS voltage, possible inferior [place] (probably old). Awaiting formal read. CXR showed no acute cardiopulmonary pathology. Unclear etiology. Heme Onc consulted, waiting recs. Iron, TIBC, ferritin, B12, folic acid, and thiamine ordered. Add multivitamin, folic acid, and thiamine. Transfused 2 units. Hemoglobin reassessed 4.8 -> 6.8, will give 3rd unit. Monitor vitals and telemetry. Monitor lab work, add TSH. 11/05: hgb 8.5 today, monitor, plt 25, defer transfusion to heme/onc 11/06: bone marrow bx today, plt 23 (2) Weakness: Code(s): R53.1 - Weakness Status: Acute Assessment and Plan: High suspicion for weakness secondary to anemia. Given transfusions. Consider PT/OT eval and treat once hemoglobin stable. May have some degree of deconditioning due to injury to left knee in August. (3) Hematuria: Code(s): R31.9 - Hematuria, unspecified Status: Acute Assessment and Plan: Patient reported hematuria after admission to the floor. Described as bright red. UA: Cloudy, 1+ protein, 3+ blood, 6-10 RBC, otherwise unremarkable. CT of abdomen pelvis without con ordered. Showed bilateral nephrolithiasis. 6 mm renal stone in a presumably chronically mildly dilated right upper pole calyx. No distal stones or evidence of obstructive uropathy. No acute abdominopelvic process detected. Suspect patient passed stone, low suspicion for UTI. Will continue to monitor. (4) Hyponatremia: Code(s): E87.1 - Hypo-osmolality and hyponatremia Status: Acute Assessment and Plan: worsening, consult nephro pending, hold HCTZ (5) Swelling of both lower extremities: Code(s): M79.89 - Other specified soft tissue disorders Status: Acute Assessment and Plan: 1+ pitting edema to bilateral lower extremities. No current shortness of breath or pulmonary edema seen on chest x-ray. BNP elevated at 4090. Echo ordered. No previous on file. Allergy to Lasix. Given that patient will received 3 transfusions and that there was concern for heart failure, start spironolactone as 12.5 b.i.d. monitor daily weights and I&Os. (6) Chronic kidney disease, stage 4 (severe): Code(s): N18.4 - Chronic kidney disease, stage 4 (severe) Status: Acute Assessment and Plan: Creatinine currently 2.4. Baseline creatinine 2.1-2.5 in 2022. GFR 20, ECC 20, BUN 36. Continue home calcitriol. Monitor. 11/05: improving, down to 2, monitor 11/06: worsening, nephro consult pending Plan Home Meds/Chronic Conditions -GERD: Continue omeprazole -HTN: Continue home lisinopril, hydrochlorothiazide held -OTC/supplements: Continue Tylenol and vitamin D3 Diet: Renal diet GI Prophylaxis: Continuing home omeprazole DVT Prophylaxis: SCDs, pharmacological contraindicated due to current anemia unknown etiology Lines: pIV Code Status: Full code Subjective Date/time seen: 11/06/23 13:25 Interval history: 78-year-old female with history of CKD, hypertension, Rodriguez sarcoma 2013 is presenting with palpitations and shortness of breath and currently being worked up for pancytopenia of unknown etiology. No overnight events noted. No chest pain or shortness of breath. No nausea, vomiting or diarrhea. No fevers or chills. Review of Systems Review of Systems: 12 point review of systems was assessed and was negative except as noted in the HPI Exam Narrative: General: No acute distress, alert and oriented per baseline HEENT: Atraumatic, normocephalic, mucous membranes moist CV: Regular rate and rhythm, S1, S2 Lungs: Clear to auscultation bilatera
--- NOTE | 2023-11-06 14:40 | PM.CNNEP ---
Assessment and Plan Assessment and plan (1) Chronic kidney disease, stage 4 (severe): Code(s): N18.4 - Chronic kidney disease, stage 4 (severe) Status: Chronic Assessment and Plan: at baseline and stable creatinine runs ~ 2.1 - 2.5mg/dl in the last several years outpatient evaluation suggests HTN, DM, and age-related changeas etiology continue supportive therapy (2) Hyponatremia: Code(s): E87.1 - Hypo-osmolality and hyponatremia Status: Chronic Assessment and Plan: noted since 2019 usually rruns in the low 130s asymptomatic follow trend (3) Pancytopenia: Code(s): D61.818 - Other pancytopenia Status: Acute Assessment and Plan: quite severe on presentation Hem/Onc following s/p bone marrow biopsy blood product transfusion per protocol continue supportive therapy (4) Swelling of both lower extremities: Code(s): M79.89 - Other specified soft tissue disorders Status: Acute Assessment and Plan: stable if not improving on diuretic rehrapy (5) Hypertension: Code(s): I10 - Essential (primary) hypertension Status: Chronic Assessment and Plan: reasonable control follow trend of hemodyanmics (6) Diabetes mellitus with chronic kidney disease: Code(s): E11.22 - Type 2 diabetes mellitus with diabetic chronic kidney disease Status: Chronic Assessment and Plan: follow accu-cheks glycemic control per hospitalists I will continue to follow patient with you while she remains hospitalized to make further recommendations as needed. Thank you for allowing me to participate in the care of this patient. History of Present Illness Reason for Consult Consult date: 11/06/23 Reason for consult: chronic renal failure and hyponatremia Chief Complaint Chief complaint: anemia,macrocytic History of Present Illness Narrative: The patient is a 78-year-old female with a past medical history as outlined below who presented to [facility] Emergency room at the request of her PCP for abnormal labs. The patient reports that she has been having on off issues with weakness, palpitations, and shortness of breath for the past several weeks. She 1st noticed T symptoms on Thanksgiving and initially, the symptoms were short-lived but as time has progressed, she has noticed that they have been progressively getting worse. She went to see her primary care physician who ordered routine blood work which demonstrated significant pancytopenia with a low up by cell count, severe anemia, and thrombocytopenia. She was directed to the emergency room for further assessment of these laboratory abnormalities. Workup and evaluation in the emergency room confirmed her severe pancytopenia which she was otherwise hemodynamically stable. Her chemistry is also for consistent with her known history of chronic kidney disease in association with mild hyponatremia. Upon further questioning, she denied any history of hemoptysis, hematemesis, melena or hematochezia. Given the severe pancytopenia as mentioned, blood products were ordered for transfusion with Hematology consultation as well. She was subsequently admitted to the hospital for further evaluation and therapy. Since her admission, she has received several blood product transfusions related to her pancytopenia and has undergone a bone marrow biopsy for a definitive diagnosis with hematology following. Renal consultation was requested due to her chronic kidney disease and mild hyponatremia. The patient is somewhat familiar to me as I follow her in the office for management of her chronic kidney disease. Her chronic kidney disease is secondary to a combination of diabetes, hypertension, and age-related change of her baseline creatinine running around 2.0 - 2.3 mg/dL since 2010. Management of her chronic kidney disease has been supportive and she has maintained stability in
[2023-11-06 19:19] LABS: Haptoglobin 406 mg/dL (43-212)
[2023-11-07] VITALS (15 sets, daily range): BP systolic 111–158; BP diastolic 41–99; PULSE 75–117; RESP 14–21; TEMP 36.2–37.4; O2SAT 95–100
[2023-11-07 05:55] LABS: Hematocrit 22.2 % (37.0-47.0); Hemoglobin 7.3 g/dL (12.0-15.0); Immature Platelet Fraction Pct 1.2 % (0.9-11.2); Mean Corpuscular HGB Conc 32.9 g/dl (32-36); Mean Corpuscular Hemoglobin 34.4 pg (26-34); Mean Corpuscular Volume 104.7 fl (80-100); Mean Platelet Volume 9.1 fl (7.4-10.4); Red Blood Count 2.12 M/mm3 (4.2-5.4); Red Cell Distribution Width 19.5 % (11.5-14.5); White Blood Count 2.7 K/mm3 (4.5-10.0)
[2023-11-07 06:20] LABS: Alanine Aminotransferase 10 U/L (6-35); Albumin Level 3.2 g/dL (3.5-5.1); Alkaline Phosphatase 67 U/L (38-126); Anion Gap 9 mmol/L (8-16); Aspartate Amino Transferase 17 U/L (14-36); Bilirubin,Total 0.6 mg/dL (0.2-1.3); Blood Urea Nitrogen 36 mg/dL (7-17); Calcium 8.3 mg/dL (8.4-10.2); Carbon Dioxide 20 mmol/L (22-30); Chloride 104 mmol/L (98-107); Estimated CRCL calculation 20 ml/min; Estimated Glomerular Filt Rate 21; Glucose 119 mg/dL (65-110); Sodium 133 mmol/L (137-145)
[2023-11-07] MEDS: FOLIC ACID 1 MG TABLET PO (08:10)
[2023-11-07] MEDS: SPIRONOLACTONE 12.5 MG TABLET PO ×2 (08:10→18:43)
[2023-11-07] MEDS: THIAMINE HCL 100 MG TABLET PO (08:10)
[2023-11-07] MEDS: MULTIVITAMINS THERAPEUTIC TAB (*BKC) 1 TABLET PO (08:10)
[2023-11-07] MEDS: lisinopriL 20 MG TABLET PO (08:10)
[2023-11-07] MEDS: PANTOPRAZOLE 40 MG TABLET PO (08:10)
[2023-11-07] MEDS: CHOLECALCIFEROL 1,000 UNITS TABLET 10000 UNITS PO (08:10)
[2023-11-07] MEDS: calcitrioL 0.25 MCG CAPSULE PO (08:10)
[2023-11-07] MEDS: ACETAMINOPHEN 325 MG TABLET 650 MG PO ×3 (08:11→20:26)
--- NOTE | 2023-11-07 08:56 | WPDONCPN ---
Progress Note: A/P (1) Pancytopenia Code(s): D61.818 - Other pancytopenia Status: Acute <Emery Florence - 11/07/23 16:48> (1) Pancytopenia Code(s): D61.818 - Other pancytopenia Status: Acute <Maia Cortés - 11/07/23 10:16> - Additional Plan Patient seen and examined. Labs noted. Bone marrow biopsy results are pending. She tolerated the procedure well. We will transfuse 2 units of platelets today prior to the discharge. Follow-up with us as an outpatient to discuss bone marrow pathology and further management. She should be able to go home from Hematology standpoint. Emery Florence MD <Emery Florence - 11/07/23 16:48> Pancytopenia- Labs from today are notable for WBC 2.7, Hgb 7.3, Plt 21,000. BMBX results pending. We will discuss results in office with patient and she verbalized understanding. Since there is a steady decline in her platelets, and in anticipation of discharge soon, I will order 2 units of platelets. She believes she has a reaction before so I will order Tylenol and Benadryl as a pre medication. Transfuse PRBC for Hgb <7. She can be discharged and follow up in office once stable. <Maia Cortés - 11/07/23 10:18> - Time Spent With Patient Total time spent is greater than 50% in coordination of care (as documented) at patient's floor/unit and/or counseling patient: <Emery Florence - 11/07/23 16:48> Total time spent is greater than 50% in coordination of care (as documented) at patient's floor/unit and/or counseling patient: <Maia Cortés - 11/07/23 09:01> 15 - 25 minutes <Maia Cortés - 11/07/23 09:01> Subjective Interval history: Patient is feeling well today after bone marrow biopsy. She denies pain or swelling in the area. She is sitting in the chair visiting with her . She is worried about the results of the BMBX and how long she has to live. She denies any bleeding or bruising. States she is still having leg pain that has not been addressed. <Maia Cortés - 11/07/23 10:18> Review of Systems - Review of Systems All systems reviewed & are unremarkable except as noted in HPI and bel <Maia Cortés - 11/07/23 09:01> - Musculoskeletal Comments: L leg pain <Maia Cortés 11/07/23 09:01> - Neurologic Reports abnormal gait (with leg pain) <Maia Cortés 11/07/23 09:01> Exam Vital signs: Temp Pulse Resp BP Pulse Ox O2 Del Method 37.4 C 102 H 15 149/99 H 99 Room Air 11/07/23 15:15 11/07/23 15:15 11/07/23 15:15 11/07/23 15:15 11/07/23 15:15 11/07/23 08:00 <Emery Florence - 11/07/23 16:48> Temp Pulse Resp BP Pulse Ox O2 Del Method 36.2 C L 102 H 21 H 121/41 L 100 Room Air 11/07/23 06:00 11/07/23 06:00 11/07/23 06:00 11/07/23 06:00 11/07/23 06:00 11/06/23 20:00 <Maia Cortés 11/07/23 09:01> - Constitutional no acute distress <Maia Cortés 11/07/23 09:01> - Routine Neck Exam Absent: lymphadenopathy <Maia Cortés 11/07/23 09:01> - Routine Respiratory Exam Present: CTAB <Maia Cortés 11/07/23 09:01> - Routine Abdominal Exam Present: normal bowel sounds <Maia Cortés 11/07/23 09:01> - Routine Skin Exam Comments: BMBX incision <Maia Cortés 11/07/23 09:01> - Routine Neurological Exam Present: alert, oriented X3 <MooMaia 11/07/23 09:01> - Routine Psychiatric Exam Present: normal affect <MooMaia 11/07/23 09:01> PN: Objective Data - Labs CBC & Chem 7: 11/07/23 05:28 11/07/23 05:28 <Emery Florence - 11/07/23 16:48> Labs: Laboratory Results - last 24 hr 11/04/23 11/04/23 11/07/23 12:47 14:51 05:28 WBC 2.7 L RBC 2.12 L Hgb 7.3 L Hct 22.2 L MCV 104.7 H MCH 34.4 H MCHC 32.9 RDW 19.5 H Plt Count 21 L* MPV 9.1 Immature Gran % (Auto) Not Reportable Neut % (Auto) Not Reportable Lymph % (Auto) Not Reportable [place] % (Auto) Not Reportable Eos % (Auto) Not Reportable Ba
[2023-11-07 09:15] LABS: Platelet Count Result 21 k/mm3 (150-375)
--- NOTE | 2023-11-07 12:01 | P.PNNP_ITS ---
Progress Note: A&P Assessment and Plan (1) Chronic kidney disease, stage 4 (severe): Code(s): N18.4 - Chronic kidney disease, stage 4 (severe) Status: Chronic Assessment and Plan: * at baseline and stable * creatinine runs ~ 2.1 - 2.5mg/dl in the last several years * outpatient evaluation suggests HTN, DM, and age-related changeas etiology * continue supportive therapy (2) Hyponatremia: Code(s): E87.1 - Hypo-osmolality and hyponatremia Status: Chronic Assessment and Plan: * noted since 2019 * usually rruns in the low 130s * asymptomatic * HCTZ on hold * follow trend (3) Pancytopenia: Code(s): D61.818 - Other pancytopenia Status: Acute Assessment and Plan: * quite severe on presentation * Hem/Onc following * s/p bone marrow biopsy * blood product transfusion per protocol * continue supportive therapy (4) Swelling of both lower extremities: Code(s): M79.89 - Other specified soft tissue disorders Status: Acute Assessment and Plan: * stable if not improving * on diuretic rehrapy (5) Hypertension: Code(s): I10 - Essential (primary) hypertension Status: Chronic Assessment and Plan: * reasonable control * follow trend of hemodyanmics (6) Diabetes mellitus with chronic kidney disease: Code(s): E11.22 - Type 2 diabetes mellitus with diabetic chronic kidney disease Status: Chronic Assessment and Plan: * follow accu-cheks * glycemic control per hospitalists Will continue to follow. Subjective Date/time seen: 11/07/23 12:01 Interval history: Follow-up for chronic kidney disease and chronic hyponatremia. Appears to be doing reasonably well; renal function stable and sodium appears to be improving if not stabilizing with current interventions; no apparent distress nored; no issues/events overnight. Exam Narrative: General: elderly but WD/WN female in NAD Heart: normal S1 and S2; no rub Lungs: clear to auscultation Abdomen: soft, nontender, nondistended, positive bowel sounds Extremities: no cyanosis or clubbing; trace edema Skin: warm and dry Objective Data Vital Signs Vital Signs: Vital Signs Temp Pulse Resp BP Pulse Ox O2 Del Method 11/07/23 12:00 112 H 11/07/23 08:00 102 H 11/07/23 08:00 102 H 21 H 100 Room Air 11/07/23 06:00 97.2 F L 102 H 21 H 121/41 L 100 11/07/23 04:00 97 11/07/23 00:00 92 11/06/23 22:27 98.2 F 105 H 20 120/50 L 98 11/06/23 20:00 119 H 16 100 Room Air 11/06/23 20:00 102 H Intake/Output Intake/Output: Intake & Output 11/04/23 11/05/23 11/06/23 11/07/23 23:59 23:59 23:59 23:59 Intake Total 350 1200 1360 1720 Output Total 100 8381 600 4891 Balance 250 200 560 720 Meds/Results Medications: Active Medications Generic Name Dose Route Start Last Admin Trade Name Freq PRN Reason Stop Dose Admin Acetaminophen 650 mg 11/04/23 20:54 11/07/23 08:11 Acetaminophen 325 Mg Tablet PO 650 mg Q6H PRN Administration Pain (Scale Score 1-3) Calcitriol 0.25 mcg
--- NOTE | 2023-11-07 12:01 | PM.PNNEP ---
Progress Note: A&P Assessment and Plan (1) Chronic kidney disease, stage 4 (severe): Code(s): N18.4 - Chronic kidney disease, stage 4 (severe) Status: Chronic Assessment and Plan: at baseline and stable creatinine runs ~ 2.1 - 2.5mg/dl in the last several years outpatient evaluation suggests HTN, DM, and age-related changeas etiology continue supportive therapy (2) Hyponatremia: Code(s): E87.1 - Hypo-osmolality and hyponatremia Status: Chronic Assessment and Plan: noted since 2019 usually rruns in the low 130s asymptomatic HCTZ on hold follow trend (3) Pancytopenia: Code(s): D61.818 - Other pancytopenia Status: Acute Assessment and Plan: quite severe on presentation Hem/Onc following s/p bone marrow biopsy blood product transfusion per protocol continue supportive therapy (4) Swelling of both lower extremities: Code(s): M79.89 - Other specified soft tissue disorders Status: Acute Assessment and Plan: stable if not improving on diuretic rehrapy (5) Hypertension: Code(s): I10 - Essential (primary) hypertension Status: Chronic Assessment and Plan: reasonable control follow trend of hemodyanmics (6) Diabetes mellitus with chronic kidney disease: Code(s): E11.22 - Type 2 diabetes mellitus with diabetic chronic kidney disease Status: Chronic Assessment and Plan: follow accu-cheks glycemic control per hospitalists Will continue to follow. Subjective Date/time seen: 11/07/23 12:01 Interval history: Follow-up for chronic kidney disease and chronic hyponatremia. Appears to be doing reasonably well; renal function stable and sodium appears to be improving if not stabilizing with current interventions; no apparent distress nored; no issues/events overnight. Exam Narrative: General: elderly but WD/WN female in NAD Heart: normal S1 and S2; no rub Lungs: clear to auscultation Abdomen: soft, nontender, nondistended, positive bowel sounds Extremities: no cyanosis or clubbing; trace edema Skin: warm and dry Objective Data Vital Signs Vital Signs: Vital Signs Temp Pulse Resp BP Pulse Ox O2 Del Method 11/07/23 12:00 112 H 11/07/23 08:00 102 H 11/07/23 08:00 102 H 21 H 100 Room Air 11/07/23 06:00 97.2 F L 102 H 21 H 121/41 L 100 11/07/23 04:00 97 11/07/23 00:00 92 11/06/23 22:27 98.2 F 105 H 20 120/50 L 98 11/06/23 20:00 119 H 16 100 Room Air 11/06/23 20:00 102 H Intake/Output Intake/Output: Intake & Output 11/04/23 11/05/23 11/06/23 11/07/23 23:59 23:59 23:59 23:59 Intake Total 350 1200 1360 1720 Output Total 100 6729 231 9015 Balance 250 200 560 720 Meds/Results Medications: Active Medications Generic Name Dose Route Start Last Admin Trade Name Freq PRN Reason Stop Dose Admin Acetaminophen 650 mg 11/04/23 20:54 11/07/23 08:11 Acetaminophen 325 Mg Tablet PO 650 mg Q6H PRN Administration Pain (Scale Score 1-3) Calcitriol 0.25 mcg 11/05/23 09:00 11/07/23 08:10 Calcitriol 0.25 Mcg Capsule PO 0.25 mcg DAILY [facility] Administration Folic Acid 1 mg 11/05/23 09:00 11/07/23 08:10 Folic Acid 1 Mg Tablet PO 1 mg DAILY [facility] Administration Hydrochlorothiazide 25 mg 11/05/23 09:00 11/06/23 12:00 Hydrochlorothiazide 25 Mg Tablet PO 25 mg DAILY [facility] Administration Lisinopril 20 mg 11/05/23 09:00 11/07/23 08:10 Lisinopril 20 Mg Tablet PO 20 mg DAILY [facility] Administration Multivitamins Therapeutic 1 tablet 11/05/23 09:00 11/07/23 08:10 Multivitamins Therapeutic Tab (*Bkc) PO 1 tablet QAM [facility] Administration Neomycin/Polymyxin/Bacitracin 1 applic 11/05/23 17:45 Neomycin/Polymyxin/Bacitracin Ointment 15 Gm Tube TOPICAL PRN PRN with dressing changes Pantoprazole Sodium 40 mg 11/05/23 10:35 11/07
--- NOTE | 2023-11-07 14:00 | PM.IMPN ---
Progress Note: A&P Assessment and Plan (1) Pancytopenia: Code(s): D61.818 - Other pancytopenia Status: Acute Assessment and Plan: CBC showed: WBC of 3.5, RBC of 1.22, HGB of 4.6, HCT of 14.8, MCV of 121 3, MCHC of 31.1, RDW of 15.1, platelet count 34. EKG showed sinus tachycardia with rate of 110, low QRS voltage, possible inferior SD (probably old). Awaiting formal read. CXR showed no acute cardiopulmonary pathology. Unclear etiology. Heme Onc consulted, waiting recs. Iron, TIBC, ferritin, B12, folic acid, and thiamine ordered. Add multivitamin, folic acid, and thiamine. Transfused 2 units. Hemoglobin reassessed 4.8 -> 6.8, will give 3rd unit. Monitor vitals and telemetry. Monitor lab work, add TSH. 11/05: hgb 8.5 today, monitor, plt 25, defer transfusion to heme/onc 11/06: bone marrow bx today, plt 23 11/07: platelet transfusion per heme/onc, bone marrow bx pending (2) Weakness: Code(s): R53.1 - Weakness Status: Acute Assessment and Plan: High suspicion for weakness secondary to anemia. Given transfusions. Consider PT/OT eval and treat once hemoglobin stable. May have some degree of deconditioning due to injury to left knee in August. resolved (3) Hematuria: Code(s): R31.9 - Hematuria, unspecified Status: Acute Assessment and Plan: Patient reported hematuria after admission to the floor. Described as bright red. UA: Cloudy, 1+ protein, 3+ blood, 6-10 RBC, otherwise unremarkable. CT of abdomen pelvis without con ordered. Showed bilateral nephrolithiasis. 6 mm renal stone in a presumably chronically mildly dilated right upper pole calyx. No distal stones or evidence of obstructive uropathy. No acute abdominopelvic process detected. Suspect patient passed stone, low suspicion for UTI. Will continue to monitor. resolving (4) Hyponatremia: Code(s): E87.1 - Hypo-osmolality and hyponatremia Status: Acute Assessment and Plan: improving slowly, cont to hold HCTZ (5) Swelling of both lower extremities: Code(s): M79.89 - Other specified soft tissue disorders Status: Acute Assessment and Plan: 1+ pitting edema to bilateral lower extremities. No current shortness of breath or pulmonary edema seen on chest x-ray. BNP elevated at 4090. Echo ordered. No previous on file. Allergy to Lasix. Given that patient will received 3 transfusions and that there was concern for heart failure, start spironolactone as 12.5 b.i.d. monitor daily weights and I&Os. improving (6) Chronic kidney disease, stage 4 (severe): Code(s): N18.4 - Chronic kidney disease, stage 4 (severe) Status: Acute Assessment and Plan: Creatinine currently 2.4. Baseline creatinine 2.1-2.5 in 2022. GFR 20, ECC 20, BUN 36. Continue home calcitriol. Monitor. 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 No overnight events noted. No chest pain or shortness of breath. No nausea, vomiting or diarrhea. No fevers or chills. Eager to go home. Getting platelet transfusion. Review of Systems Review of Systems: 12 point review of systems was assessed and was negative except as noted in the HPI Exam Narrative: General: No acute di
[2023-11-07] MEDS: diphenhydrAMINE HCl CAP 25 MG CAPSULE PO (14:41)
[2023-11-07] MEDS: SODIUM CHLORIDE 0.9% IV 250 ML 30 ML IV CONT (14:42)
[2023-11-07 19:11] LABS: Mean Platelet Volume 10.8 fl (7.4-10.4); Platelet Count Result 80 k/mm3 (150-375)
[2023-11-07] MEDS: diphenhydrAMINE HCl CAP 25 MG CAPSULE (20:27)
[2023-11-07] MEDS: SODIUM CHLORIDE 0.9% IV 250 ML 100 ML (20:48)
[2023-11-08] VITALS (11 sets, daily range): BP systolic 130–187; BP diastolic 53–83; PULSE 90–116; RESP 16–21; TEMP 36.4–37.4; O2SAT 98–100
[2023-11-08] MEDS: CYCLOBENZAPRINE HCL 5 MG TABLET PO (00:32)
[2023-11-08 05:10] LABS: Methylmalonic Acid 219 nmol/L (87-318)
[2023-11-08 06:00] LABS: Hematocrit 21.2 % (37.0-47.0); Mean Corpuscular HGB Conc 32.5 g/dl (32-36); Mean Corpuscular Hemoglobin 34.2 pg (26-34); Mean Platelet Volume 10.6 fl (7.4-10.4); Platelet Count Result 112 k/mm3 (150-375); Red Blood Count 2.02 M/mm3 (4.2-5.4); Red Cell Distribution Width 18.8 % (11.5-14.5); White Blood Count 2.7 K/mm3 (4.5-10.0)
[2023-11-08 06:01] LABS: Alanine Aminotransferase 14 U/L (6-35); Albumin Level 3.4 g/dL (3.5-5.1); Alkaline Phosphatase 70 U/L (38-126); Anion Gap 10 mmol/L (8-16); Aspartate Amino Transferase 19 U/L (14-36); Bilirubin,Total 0.6 mg/dL (0.2-1.3); Blood Urea Nitrogen 39 mg/dL (7-17); Calcium 8.8 mg/dL (8.4-10.2); Carbon Dioxide 21 mmol/L (22-30); Chloride 102 mmol/L (98-107); Estimated CRCL calculation 21 ml/min; Estimated Glomerular Filt Rate 22; Glucose 113 mg/dL (65-110); Sodium 133 mmol/L (137-145)
[2023-11-08 06:56] LABS: Hemoglobin 6.9 g/dL (12.0-15.0)
[2023-11-08 07:24] LABS: Band Neutrophils Percent 6 % (0-6); Basophils Absolute Manual 0.13 K/mm3 (0.0-0.1); Basophils Percent Manual 5 % (0-1); Lymphocytes Absolute Manual 1.24 K/mm3 (1.1-4.5); Metamyelocytes Percent 2 %; Monocytes Absolute Manual 0.67 K/mm3 (0.1-0.90); Monocytes Percent Manual 25 % (3-9); Neutrophils Absolute Manual 0.59 K/mm3 (1.7-7.2); Neutrophils Percent Manual 16 % (46-73); Total Cells Counted 100
[2023-11-08 07:29] LABS: Anisocytosis 1+ (NORMAL); Platelet Estimate Decreased (Adequate); Schistocytes None Seen (NORMAL)
[2023-11-08] MEDS: ACETAMINOPHEN 325 MG TABLET 650 MG PO ×3 (08:21→20:06)
[2023-11-08] MEDS: MULTIVITAMINS THERAPEUTIC TAB (*BKC) 1 TABLET PO (08:22)
[2023-11-08] MEDS: SPIRONOLACTONE 12.5 MG TABLET PO ×2 (08:22→17:39)
[2023-11-08] MEDS: lisinopriL 20 MG TABLET PO (08:22)
[2023-11-08] MEDS: PANTOPRAZOLE 40 MG TABLET PO (08:22)
[2023-11-08] MEDS: calcitrioL 0.25 MCG CAPSULE PO (08:22)
[2023-11-08] MEDS: FOLIC ACID 1 MG TABLET PO (08:22)
[2023-11-08] MEDS: THIAMINE HCL 100 MG TABLET PO (08:22)
[2023-11-08] MEDS: CHOLECALCIFEROL 1,000 UNITS TABLET 10000 UNITS PO (08:23)
--- NOTE | 2023-11-08 11:51 | PM.PNNEP ---
Progress Note: A&P Assessment and Plan (1) Chronic kidney disease, stage 4 (severe): Code(s): N18.4 - Chronic kidney disease, stage 4 (severe) Status: Chronic Assessment and Plan: at baseline and stable creatinine runs ~ 2.1 - 2.5mg/dl in the last several years outpatient evaluation suggests HTN, DM, and age-related changeas etiology continue supportive therapy (2) Hyponatremia: Code(s): E87.1 - Hypo-osmolality and hyponatremia Status: Chronic Assessment and Plan: noted since 2019 usually rruns in the low 130s asymptomatic HCTZ on hold follow trend (3) Pancytopenia: Code(s): D61.818 - Other pancytopenia Status: Acute Assessment and Plan: quite severe on presentation Hem/Onc following s/p bone marrow biopsy blood product transfusion per protocol continue supportive therapy (4) Swelling of both lower extremities: Code(s): M79.89 - Other specified soft tissue disorders Status: Acute Assessment and Plan: stable if not improving on diuretic rehrapy (5) Hypertension: Code(s): I10 - Essential (primary) hypertension Status: Chronic Assessment and Plan: reasonable control follow trend of hemodyanmics (6) Diabetes mellitus with chronic kidney disease: Code(s): E11.22 - Type 2 diabetes mellitus with diabetic chronic kidney disease Status: Chronic Assessment and Plan: follow accu-cheks glycemic control per hospitalists Will continue to follow. Subjective Date/time seen: 11/08/23 11:51 Interval history: Follow-up for chronic kidney disease and chronic hyponatremia. Major complaint is that of knee pain that has been getting worse since admission; otherwise, no other acute issues/complaints voiced; asking about discharge; no other issues/events overnight or earlier this AM. Exam Narrative: General: elderly but WD/WN female in NAD Heart: normal S1 and S2; no rub Lungs: clear to auscultation Abdomen: soft, nontender, nondistended, positive bowel sounds Extremities: no cyanosis or clubbing; trace edema Skin: warm and intact Objective Data Vital Signs Vital Signs: Vital Signs Temp Pulse Resp BP Pulse Ox O2 Del Method 11/08/23 10:00 99.4 F 109 H 16 151/71 H 98 11/08/23 08:00 115 H 11/08/23 08:21 187/83 H 11/08/23 08:00 Room Air 11/08/23 10:09 143/73 H 11/08/23 06:00 97.6 F 113 H 21 H 134/73 100 11/08/23 04:00 106 H 11/08/23 00:00 90 11/07/23 22:45 98.1 F 98 18 131/67 100 11/07/23 22:00 97.6 F 113 H 21 H 158/69 H 100 11/07/23 21:50 98.7 F 98 16 111/46 L 100 11/07/23 20:00 117 H 11/07/23 20:50 98.1 F 100 20 129/49 L 100 11/07/23 20:00 Room Air 11/07/23 20:38 97.6 F 113 H 21 H 158/69 H 100 11/07/23 18:11 98.6 F 75 14 132/87 95 Intake/Output Intake/Output: Intake & Output 11/05/23 11/06/23 11/07/23 11/08/23 23:59 23:59 23:59 23:59 Intake Total 1200 1360 2077 980 Output Total 5331 268 0437 1200 Balance 129 858 8874 -220 Meds/Results Medications: Active Medications Generic Name Dose Route Start Last Admin Trade Name Timq PRN Reason Stop Dose Admin Acetaminophen 650 mg 11/04/23 20:54 11/08/23 14:01 Acetaminophen 325 Mg Tablet PO 650 mg Q6H PRN Administration Pain (Scale Score 1-3) Calcitriol 0.25 mcg 11/05/23 09:00 11/08/23 08:22 Calcitriol 0.25 Mcg Capsule PO 0.25 mcg DAILY BONNY Administration Folic Acid 1 mg 11/05/23 09:00 11/08/23 08:22 Folic Acid 1 Mg Tablet PO 1 mg DAILY BONNY Administration Hydrochlorothiazide 25 mg 11/05/23 09:00 11/06/23 12:00 Hydrochlorothiazide 25 Mg Tablet PO 25 mg DAILY BONNY Administration Lisinopril 20 mg 11/05/23 09:00 11/08/23 08:22 Lisinopril 20 Mg Tablet PO 20 mg DAILY BONNY Administration Multivitamins Therapeutic 1 tablet 1
--- NOTE | 2023-11-08 11:51 | P.PNNP_ITS ---
Progress Note: A&P Assessment and Plan (1) Chronic kidney disease, stage 4 (severe): Code(s): N18.4 - Chronic kidney disease, stage 4 (severe) Status: Chronic Assessment and Plan: * at baseline and stable * creatinine runs ~ 2.1 - 2.5mg/dl in the last several years * outpatient evaluation suggests HTN, DM, and age-related changeas etiology * continue supportive therapy (2) Hyponatremia: Code(s): E87.1 - Hypo-osmolality and hyponatremia Status: Chronic Assessment and Plan: * noted since 2019 * usually rruns in the low 130s * asymptomatic * HCTZ on hold * follow trend (3) Pancytopenia: Code(s): D61.818 - Other pancytopenia Status: Acute Assessment and Plan: * quite severe on presentation * Hem/Onc following * s/p bone marrow biopsy * blood product transfusion per protocol * continue supportive therapy (4) Swelling of both lower extremities: Code(s): M79.89 - Other specified soft tissue disorders Status: Acute Assessment and Plan: * stable if not improving * on diuretic rehrapy (5) Hypertension: Code(s): I10 - Essential (primary) hypertension Status: Chronic Assessment and Plan: * reasonable control * follow trend of hemodyanmics (6) Diabetes mellitus with chronic kidney disease: Code(s): E11.22 - Type 2 diabetes mellitus with diabetic chronic kidney disease Status: Chronic Assessment and Plan: * follow accu-cheks * glycemic control per hospitalists Will continue to follow. Subjective Date/time seen: 11/08/23 11:51 Interval history: Follow-up for chronic kidney disease and chronic hyponatremia. Major complaint is that of knee pain that has been getting worse since admission; otherwise, no other acute issues/complaints voiced; asking about discharge; no other issues/events overnight or earlier this AM. Exam Narrative: General: elderly but WD/WN female in NAD Heart: normal S1 and S2; no rub Lungs: clear to auscultation Abdomen: soft, nontender, nondistended, positive bowel sounds Extremities: no cyanosis or clubbing; trace edema Skin: warm and intact Objective Data Vital Signs Vital Signs: Vital Signs Temp Pulse Resp BP Pulse Ox O2 Del Method 11/08/23 10:00 99.4 F 109 H 16 151/71 H 98 11/08/23 08:00 115 H 11/08/23 08:21 187/83 H 11/08/23 08:00 Room Air 11/08/23 10:09 143/73 H 11/08/23 06:00 97.6 F 113 H 21 H 134/73 100 11/08/23 04:00 106 H 11/08/23 00:00 90 11/07/23 22:45 98.1 F 98 18 131/67 100 11/07/23 22:00 97.6 F 113 H 21 H 158/69 H 100 11/07/23 21:50 98.7 F 98 16 111/46 L 100 11/07/23 20:00 117 H 11/07/23 20:50 98.1 F 100 20 129/49 L 100 11/07/23 20:00 Room Air 11/07/23 20:38 97.6 F 113 H 21 H 158/69 H 100 11/07/23 18:11 98.6 F 75 14 132/87 95 Intake/Output Intake/Output: Intake & Output 11/05/23 11/06/23 11/07/23 11/08/23 23:59 23:59 23:59 23:59 Intake Total 1200 1360 2077 980 Output Total 8766 027 1335 1200 Balance 867 743 5573 -220 Meds/Results Medications:
--- NOTE | 2023-11-08 16:05 | PM.IMPN ---
Progress Note: A&P Assessment and Plan (1) Pancytopenia: Code(s): D61.818 - Other pancytopenia Status: Acute Assessment and Plan: CBC showed: WBC of 3.5, RBC of 1.22, HGB of 4.6, HCT of 14.8, MCV of 121 3, MCHC of 31.1, RDW of 15.1, platelet count 34. EKG showed sinus tachycardia with rate of 110, low QRS voltage, possible inferior VT (probably old). Awaiting formal read. CXR showed no acute cardiopulmonary pathology. Unclear etiology. Heme Onc consulted, waiting recs. Iron, TIBC, ferritin, B12, folic acid, and thiamine ordered. Add multivitamin, folic acid, and thiamine. Transfused 2 units. Hemoglobin reassessed 4.8 -> 6.8, will give 3rd unit. Monitor vitals and telemetry. Monitor lab work, add TSH. 11/05: hgb 8.5 today, monitor, plt 25, defer transfusion to heme/onc 11/06: bone marrow bx today, plt 23 11/07: platelet transfusion per heme/onc, bone marrow bx pending 11/08: pancytopenia noted, defer management to heme/onc, d/c pending when stable (2) Weakness: Code(s): R53.1 - Weakness Status: Acute Assessment and Plan: High suspicion for weakness secondary to anemia. Given transfusions. Consider PT/OT eval and treat once hemoglobin stable. May have some degree of deconditioning due to injury to left knee in August. resolved (3) Hematuria: Code(s): R31.9 - Hematuria, unspecified Status: Acute Assessment and Plan: Patient reported hematuria after admission to the floor. Described as bright red. UA: Cloudy, 1+ protein, 3+ blood, 6-10 RBC, otherwise unremarkable. CT of abdomen pelvis without con ordered. Showed bilateral nephrolithiasis. 6 mm renal stone in a presumably chronically mildly dilated right upper pole calyx. No distal stones or evidence of obstructive uropathy. No acute abdominopelvic process detected. Suspect patient passed stone, low suspicion for UTI. Will continue to monitor. resolving (4) Hyponatremia: Code(s): E87.1 - Hypo-osmolality and hyponatremia Status: Acute Assessment and Plan: improving slowly, cont to hold HCTZ (5) Swelling of both lower extremities: Code(s): M79.89 - Other specified soft tissue disorders Status: Acute Assessment and Plan: 1+ pitting edema to bilateral lower extremities. No current shortness of breath or pulmonary edema seen on chest x-ray. BNP elevated at 4090. Echo ordered. No previous on file. Allergy to Lasix. Given that patient will received 3 transfusions and that there was concern for heart failure, start spironolactone as 12.5 b.i.d. monitor daily weights and I&Os. 11/08: worsening, consult to ortho pending for drainage and possible cortisone injection if no concern for infection (6) Chronic kidney disease, stage 4 (severe): Code(s): N18.4 - Chronic kidney disease, stage 4 (severe) Status: Acute Assessment and Plan: Creatinine currently 2.4. Baseline creatinine 2.1-2.5 in 2022. GFR 20, ECC 20, BUN 36. Continue home calcitriol. Monitor. 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 No overnight events noted. No chest pain or shortness of breath. No nausea, vomiting or diarrhea. No fevers or chills. Patient states her left
[2023-11-09] VITALS (16 sets, daily range): BP systolic 108–162; BP diastolic 48–89; PULSE 94–116; RESP 16–20; TEMP 36.8–37.2; O2SAT 97–100
[2023-11-09] MEDS: ACETAMINOPHEN 325 MG TABLET 650 MG PO ×4 (02:07→20:12)
[2023-11-09 05:21] LABS: Immature Platelet Fraction Pct 2.1 % (0.9-11.2); Mean Corpuscular HGB Conc 32.8 g/dl (32-36); Mean Corpuscular Hemoglobin 34.2 pg (26-34); Mean Corpuscular Volume 104.3 fl (80-100); Mean Platelet Volume 10.2 fl (7.4-10.4); Platelet Count Result 98 k/mm3 (150-375); Red Blood Count 1.84 M/mm3 (4.2-5.4); Red Cell Distribution Width 18.7 % (11.5-14.5); White Blood Count 3.3 K/mm3 (4.5-10.0)
[2023-11-09 05:41] LABS: Alanine Aminotransferase 12 U/L (6-35); Albumin Level 3.1 g/dL (3.5-5.1); Alkaline Phosphatase 73 U/L (38-126); Anion Gap 11 mmol/L (8-16); Aspartate Amino Transferase 17 U/L (14-36); Bilirubin,Total 0.6 mg/dL (0.2-1.3); Blood Urea Nitrogen 40 mg/dL (7-17); Calcium 8.7 mg/dL (8.4-10.2); Carbon Dioxide 19 mmol/L (22-30); Chloride 102 mmol/L (98-107); Estimated CRCL calculation 21 ml/min; Estimated Glomerular Filt Rate 22; Glucose 128 mg/dL (65-110); Sodium 132 mmol/L (137-145)
[2023-11-09 07:04] LABS: Hematocrit 19.2 % (37.0-47.0); Hemoglobin 6.3 g/dL (12.0-15.0)
--- NOTE | 2023-11-09 07:12 | PM.CNOR ---
Assessment and Plan Assessment and plan (1) Osteoarthritis of left knee: Code(s): M17.12 - Unilateral primary osteoarthritis, left knee Status: Acute Assessment and Plan: Patient has arthritis left knee but at. She is not a candidate for surgery at this time and because of her kidney failure is not a candidate for anti-inflammatory medications. Prednisone as a possibility. Another option would be injection of the AF left knee in the office. I will see her in the office after she is dismissed discussed. Of note is the fact that the pain is much better today than yesterday. History of Present Illness HPI Consult date: 11/09/23 Chief complaint: anemia,macrocytic Narrative: I was asked to see patient regarding knee pain left. She has the anemia and kidney failure. The knee pain has been such tthat she is having time getting around at this point. Review of Systems Review of Systems: 12 point review of systems was assessed and was negative except as noted in the HPI [facility] Past Medical History Medical History (Updated 11/09/23 @ 07:16 by Jay Beatty MD) CKD (chronic kidney disease) Essential (primary) hypertension History of Rodriguez's sarcoma Hyperlipidemia Type 2 diabetes mellitus with diabetic nephropathy, without long-term current use of insulin Last A1c 5.4 on 05/07/2023. Not currently on medications as of 11/05/2023. Family History Family History Mother Diabetes mellitus Hypertension Family history of congestive heart failure, Onset Age: 99 Sibling Family history of lung cancer Social History Social History Smoking status: Former smoker Smoking end date: 11/24/1965 Alcohol intake: never Substance use: never Substance use type: does not use Lack of Transportation: No Lack of Food: Never True Current Housing: I Have Housing Concerned About Future Housing: No Difficulty Paying Gas/Electric Bills: No Difficulty Paying for Meds: YES Currently Unemployed: No Education: High School Diploma/GED Difficulty w/ Childcare or Family Care: No Living arrangements: with family Gender identity (if verbalized by the patient): Female Spiritual care concerns: No Meds Home Medications and Allergies Home Medications Medication Instructions Recorded Confirmed Type acetaminophen 325 mg tablet 650 mg PO Q6H PRN Pain (Scale 12/08/19 11/04/23 History (Tylenol) Score 1-3) omeprazole 20 mg capsule,delayed 20 mg PO DAILY #90 caps 12/21/20 11/04/23 Rx release lisinopril 20 mg tablet 20 mg PO DAILY #90 tabs 07/08/23 11/04/23 Rx hydrochlorothiazide 25 mg tablet 25 mg PO DAILY #90 tabs 10/27/23 11/04/23 Rx Vitamin D3 10,000 units PO DAILY 11/04/23 11/04/23 History calcitriol 0.25 mcg capsule 0.25 mcg PO DAILY 11/04/23 11/04/23 History Allergies Allergy/AdvReac Type Severity Reaction Status Date / Time amlodipine Allergy Mild pt does Verified 11/04/23 12:34 not remember atenolol Allergy Mild heart Verified 11/04/23 12:34 racing celecoxib Allergy Mild throat Verified 11/04/23 12:34 swells chlordiazepoxide Allergy Mild pt does Verified 11/04/23 12:34 not remember codeine Allergy Mild pass out Verified 11/04/23 12:34 diazepam Allergy Mild pt does Verified 11/04/23 12:34 not remember furosemide Allergy Mild pt does Verified 11/04/23 12:34 not remember metoprolol Allergy Mild racing Verified 11/04/23 12:34 heart propranolol Allergy Mild racing Verified 11/04/23 12:34 heart rofecoxib Allergy Mild pt does Verified 11/04/23 12:34 not remember Vital Signs Vital Signs - 24 hr 11/08/23 10:09 11/08/23 08:00 11/08/23 08:21 Temperature Pulse Rate Respiratory Rate Blood Pressure 143/73 H 187/83 H Pulse Oximetry Oxygen Delivery Room Air 11/08/23 08:00 1
[2023-11-09] MEDS: FOLIC ACID 1 MG TABLET PO (08:35)
[2023-11-09] MEDS: calcitrioL 0.25 MCG CAPSULE PO (08:35)
[2023-11-09] MEDS: THIAMINE HCL 100 MG TABLET PO (08:35)
[2023-11-09] MEDS: MULTIVITAMINS THERAPEUTIC TAB (*BKC) 1 TABLET PO (08:35)
[2023-11-09] MEDS: lisinopriL 20 MG TABLET PO (08:35)
[2023-11-09] MEDS: PANTOPRAZOLE 40 MG TABLET PO (08:35)
[2023-11-09] MEDS: SPIRONOLACTONE 12.5 MG TABLET PO ×2 (08:35→17:14)
[2023-11-09] MEDS: CHOLECALCIFEROL 1,000 UNITS TABLET 10000 UNITS PO (08:36)
[2023-11-09 09:54] LABS: Band Neutrophils Percent 3 % (0-6); Basophils Absolute Manual 0.16 K/mm3 (0.0-0.1); Basophils Percent Manual 5 % (0-1); Lymphocytes Absolute Manual 1.41 K/mm3 (1.1-4.5); Metamyelocytes Percent 2 %; Monocytes Absolute Manual 1.18 K/mm3 (0.1-0.90); Monocytes Percent Manual 36 % (3-9); Neutrophils Absolute Manual 0.46 K/mm3 (1.7-7.2); Neutrophils Percent Manual 11 % (46-73); Nucleated Red Blood Cells 6 %; Platelet Estimate Decreased (Adequate); Schistocytes None Seen (NORMAL); Total Cells Counted 100
[2023-11-09 09:55] LABS: Anisocytosis 1+ (NORMAL)
[2023-11-09] MEDS: SODIUM CHLORIDE 0.9% IV 250 ML 30 ML IV CONT (10:39)
--- NOTE | 2023-11-09 12:45 | P.PNNP_ITS ---
Progress Note: A&P Assessment and Plan (1) Chronic kidney disease, stage 4 (severe): Code(s): N18.4 - Chronic kidney disease, stage 4 (severe) Status: Chronic Assessment and Plan: * at baseline and stable * creatinine runs ~ 2.1 - 2.5mg/dl in the last several years * outpatient evaluation suggests HTN, DM, and age-related changeas etiology * continue supportive therapy (2) Hyponatremia: Code(s): E87.1 - Hypo-osmolality and hyponatremia Status: Chronic Assessment and Plan: * noted since 2019 * usually rruns in the low 130s * asymptomatic * HCTZ on hold * follow trend (3) Pancytopenia: Code(s): D61.818 - Other pancytopenia Status: Acute Assessment and Plan: * quite severe on presentation * Hem/Onc following * s/p bone marrow biopsy * blood product transfusion per protocol * continue supportive therapy (4) Swelling of both lower extremities: Code(s): M79.89 - Other specified soft tissue disorders Status: Acute Assessment and Plan: * stable if not improving * on diuretic rehrapy (5) Hypertension: Code(s): I10 - Essential (primary) hypertension Status: Chronic Assessment and Plan: * reasonable control * follow trend of hemodyanmics (6) Diabetes mellitus with chronic kidney disease: Code(s): E11.22 - Type 2 diabetes mellitus with diabetic chronic kidney disease Status: Chronic Assessment and Plan: * follow accu-cheks * glycemic control per hospitalists Not much else to add from renal perspective -- will continue to follow from a distance. Subjective Date/time seen: 11/09/23 12:45 Interval history: Follow-up for chronic kidney disease and chronic hyponatremia. See by Orthopedic Surgery regarding her worseing knee pain; no other apparent issues/events to report at this time; no apparent distress noted; seems to be doing okay otherwise. Exam Narrative: General: elderly but WD/WN female in NAD Heart: normal S1 and S2; no rub Lungs: clear to auscultation Abdomen: soft, nontender, nondistended, positive bowel sounds Extremities: no cyanosis or clubbing; trace edema Skin: no rash or nodules Objective Data Vital Signs Vital Signs: Vital Signs Temp Pulse Resp BP Pulse Ox O2 Del Method 11/09/23 12:30 98.4 F 98 16 146/51 H 100 12/17/23 12:00 94 11/09/23 08:00 103 H 11/09/23 11:50 99.0 F 97 16 157/76 H 98 11/09/23 10:50 98.6 F 97 18 141/61 H 99 11/09/23 08:00 Room Air 11/09/23 10:35 98.4 F 111 H 18 139/48 L 99 11/09/23 10:20 98.4 F 111 H 18 139/48 L 98 11/09/23 08:34 162/55 H 11/09/23 04:52 98.2 F 106 H 16 108/50 L 97 11/09/23 04:00 106 H 11/09/23 00:00 105 H 11/08/23 20:00 Room Air 11/08/23 20:00 116 H 11/08/23 19:56 98.5 F 111 H 16 130/53 L 98 Intake/Output Intake/Output: Intake & Output 11/06/23 11/07/23 11/08/23 11/09/23 23:59 23:59 23:59 23:59 Intake Total 1360 2077 2220 840 Output Total 800 1000 1700 700 Balance 560 1077 520 140 Meds/Results Medications: Acti
--- NOTE | 2023-11-09 12:45 | PM.PNNEP ---
Progress Note: A&P Assessment and Plan (1) Chronic kidney disease, stage 4 (severe): Code(s): N18.4 - Chronic kidney disease, stage 4 (severe) Status: Chronic Assessment and Plan: at baseline and stable creatinine runs ~ 2.1 - 2.5mg/dl in the last several years outpatient evaluation suggests HTN, DM, and age-related changeas etiology continue supportive therapy (2) Hyponatremia: Code(s): E87.1 - Hypo-osmolality and hyponatremia Status: Chronic Assessment and Plan: noted since 2019 usually rruns in the low 130s asymptomatic HCTZ on hold follow trend (3) Pancytopenia: Code(s): D61.818 - Other pancytopenia Status: Acute Assessment and Plan: quite severe on presentation Hem/Onc following s/p bone marrow biopsy blood product transfusion per protocol continue supportive therapy (4) Swelling of both lower extremities: Code(s): M79.89 - Other specified soft tissue disorders Status: Acute Assessment and Plan: stable if not improving on diuretic rehrapy (5) Hypertension: Code(s): I10 - Essential (primary) hypertension Status: Chronic Assessment and Plan: reasonable control follow trend of hemodyanmics (6) Diabetes mellitus with chronic kidney disease: Code(s): E11.22 - Type 2 diabetes mellitus with diabetic chronic kidney disease Status: Chronic Assessment and Plan: follow accu-cheks glycemic control per hospitalists Not much else to add from renal perspective -- will continue to follow from a distance. Subjective Date/time seen: 11/09/23 12:45 Interval history: Follow-up for chronic kidney disease and chronic hyponatremia. See by Orthopedic Surgery regarding her worseing knee pain; no other apparent issues/events to report at this time; no apparent distress noted; seems to be doing okay otherwise. Exam Narrative: General: elderly but WD/WN female in NAD Heart: normal S1 and S2; no rub Lungs: clear to auscultation Abdomen: soft, nontender, nondistended, positive bowel sounds Extremities: no cyanosis or clubbing; trace edema Skin: no rash or nodules Objective Data Vital Signs Vital Signs: Vital Signs Temp Pulse Resp BP Pulse Ox O2 Del Method 11/09/23 12:30 98.4 F 98 16 146/51 H 100 11/09/23 12:00 94 11/09/23 08:00 103 H 11/09/23 11:50 99.0 F 97 16 157/76 H 98 11/09/23 10:50 98.6 F 97 18 141/61 H 99 11/09/23 08:00 Room Air 11/09/23 10:35 98.4 F 111 H 18 139/48 L 99 11/09/23 10:20 98.4 F 111 H 18 139/48 L 98 11/09/23 08:34 162/55 H 11/09/23 04:52 98.2 F 106 H 16 108/50 L 97 11/09/23 04:00 106 H 11/09/23 00:00 105 H 11/08/23 20:00 Room Air 11/08/23 20:00 116 H 11/08/23 19:56 98.5 F 111 H 16 130/53 L 98 Intake/Output Intake/Output: Intake & Output 11/06/23 11/07/23 11/08/23 11/09/23 23:59 23:59 23:59 23:59 Intake Total 1360 2077 2220 840 Output Total 800 1000 1700 700 Balance 560 1077 520 140 Meds/Results Medications: Active Medications Generic Name Dose Route Start Last Admin Trade Name Freq PRN Reason Stop Dose Admin Acetaminophen 650 mg 11/04/23 20:54 11/09/23 15:01 Acetaminophen 325 Mg Tablet PO 650 mg Q6H PRN Administration Pain (Scale Score 1-3) Calcitriol 0.25 mcg 11/05/23 09:00 11/09/23 08:35 Calcitriol 0.25 Mcg Capsule PO 0.25 mcg DAILY BONNY Administration Folic Acid 1 mg 11/05/23 09:00 11/09/23 08:35 Folic Acid 1 Mg Tablet PO 1 mg DAILY BONNY Administration Hydrochlorothiazide 25 mg 11/05/23 09:00 11/06/23 12:00 Hydrochlorothiazide 25 Mg Tablet PO 25 mg DAILY BONNY Administration Lisinopril 20 mg 11/05/23 09:00 11/09/23 08:35 Lisinopril 20 Mg Tablet PO 20 mg DAILY BONNY Administration Multivitamins Therapeutic 1 tablet 11/05/23 09:00 11/09/23 08
[2023-11-09 14:22] LABS: Hematocrit 28.2 % (37.0-47.0); Hemoglobin 9.3 g/dL (12.0-15.0)
--- NOTE | 2023-11-09 15:34 | PM.IMPN ---
Progress Note: A&P Assessment and Plan (1) Pancytopenia: Code(s): D61.818 - Other pancytopenia Status: Acute Assessment and Plan: CBC showed: WBC of 3.5, RBC of 1.22, HGB of 4.6, HCT of 14.8, MCV of 121 3, MCHC of 31.1, RDW of 15.1, platelet count 34. EKG showed sinus tachycardia with rate of 110, low QRS voltage, possible inferior GA (probably old). Awaiting formal read. CXR showed no acute cardiopulmonary pathology. Unclear etiology. Heme Onc consulted, waiting recs. Iron, TIBC, ferritin, B12, folic acid, and thiamine ordered. Add multivitamin, folic acid, and thiamine. Transfused 2 units. Hemoglobin reassessed 4.8 -> 6.8, will give 3rd unit. Monitor vitals and telemetry. Monitor lab work, add TSH. 11/05: hgb 8.5 today, monitor, plt 25, defer transfusion to heme/onc 11/06: bone marrow bx today, plt 23 11/07: platelet transfusion per heme/onc, bone marrow bx pending 11/08: pancytopenia noted, defer management to heme/onc, d/c pending when stable 11/09: worsening, transfusion given today, awaiting heme/onc recs and bmb results (2) Weakness: Code(s): R53.1 - Weakness Status: Acute Assessment and Plan: High suspicion for weakness secondary to anemia. Given transfusions. Consider PT/OT eval and treat once hemoglobin stable. May have some degree of deconditioning due to injury to left knee in August. resolved (3) Hematuria: Code(s): R31.9 - Hematuria, unspecified Status: Acute Assessment and Plan: Patient reported hematuria after admission to the floor. Described as bright red. UA: Cloudy, 1+ protein, 3+ blood, 6-10 RBC, otherwise unremarkable. CT of abdomen pelvis without con ordered. Showed bilateral nephrolithiasis. 6 mm renal stone in a presumably chronically mildly dilated right upper pole calyx. No distal stones or evidence of obstructive uropathy. No acute abdominopelvic process detected. Suspect patient passed stone, low suspicion for UTI. Will continue to monitor. resolving (4) Hyponatremia: Code(s): E87.1 - Hypo-osmolality and hyponatremia Status: Acute Assessment and Plan: improving slowly, cont to hold HCTZ (5) Swelling of both lower extremities: Code(s): M79.89 - Other specified soft tissue disorders Status: Acute Assessment and Plan: 1+ pitting edema to bilateral lower extremities. No current shortness of breath or pulmonary edema seen on chest x-ray. BNP elevated at 4090. Echo ordered. No previous on file. Allergy to Lasix. Given that patient will received 3 transfusions and that there was concern for heart failure, start spironolactone as 12.5 b.i.d. monitor daily weights and I&Os. 11/08: worsening, consult to ortho pending for drainage and possible cortisone injection if no concern for infection 11/09: ortho will see patient in office (6) Chronic kidney disease, stage 4 (severe): Code(s): N18.4 - Chronic kidney disease, stage 4 (severe) Status: Acute Assessment and Plan: Creatinine currently 2.4. Baseline creatinine 2.1-2.5 in 2022. GFR 20, ECC 20, BUN 36. Continue home calcitriol. Monitor. 11/05: improving, down to 2, monitor 11/06: worsening, nephro consult pending 11/07: stable, appreciate nephro 11/08: stable Plan Home Meds/Chronic Conditions -GERD: Continue omeprazole -HTN: Continue home lisinopril, hydrochlorothiazide held -OTC/supplements: Continue Tylenol and vitamin D3 Diet: Renal diet GI Prophylaxis: Continuing home omeprazole DVT Prophylaxis: SCDs, pharmacological contraindicated due to current anemia unknown etiology Lines: pIV Code Status: Full code Subjective Date/time seen: 11/09/23 15:34 Interval history: 78-year-old female with history of CKD, hypertension, Rodriguez sarcoma 2012 is presenting with palpitations and shortness of breath and currently being worked up for pancytopenia of unknown etiology. No overnight events
[2023-11-10] VITALS (10 sets, daily range): BP systolic 130–163; BP diastolic 40–73; PULSE 79–152; RESP 20; TEMP 36.8–37.7; O2SAT 98–100
[2023-11-10 05:55] LABS: Hematocrit 22.1 % (37.0-47.0); Hemoglobin 7.3 g/dL (12.0-15.0); Immature Platelet Fraction Pct 1.9 % (0.9-11.2); Mean Corpuscular Volume 102.8 fl (80-100); Mean Platelet Volume 10.8 fl (7.4-10.4); Platelet Count Result 80 k/mm3 (150-375); Red Blood Count 2.15 M/mm3 (4.2-5.4); Red Cell Distribution Width 18.7 % (11.5-14.5); White Blood Count 3.5 K/mm3 (4.5-10.0)
[2023-11-10 06:36] LABS: Alanine Aminotransferase 12 U/L (6-35); Albumin Level 3.1 g/dL (3.5-5.1); Alkaline Phosphatase 78 U/L (38-126); Anion Gap 9 mmol/L (8-16); Aspartate Amino Transferase 18 U/L (14-36); Bilirubin,Total 0.6 mg/dL (0.2-1.3); Blood Urea Nitrogen 41 mg/dL (7-17); Calcium 8.8 mg/dL (8.4-10.2); Carbon Dioxide 20 mmol/L (22-30); Chloride 103 mmol/L (98-107); Estimated CRCL calculation 20 ml/min; Estimated Glomerular Filt Rate 21; Glucose 127 mg/dL (65-110); Potassium 4.1 mmol/L (3.4-5.0); Sodium 132 mmol/L (137-145)
[2023-11-10 07:45] LABS: Crenated RBC 1+ (NORMAL); Hypochromasia 1+ (NORMAL); Lymphocytes Absolute Manual 1.54 K/mm3 (1.1-4.5); Monocytes Absolute Manual 1.26 K/mm3 (0.1-0.90); Monocytes Percent Manual 36 % (3-9); Neutrophils Percent Manual 20 % (46-73); Nucleated Red Blood Cells 2 %; Platelet Estimate Decreased (Adequate); Schistocytes None Seen (NORMAL); Target Cells 1+ (NORMAL); Total Cells Counted 100
[2023-11-10] MEDS: lisinopriL 20 MG TABLET PO (08:46)
[2023-11-10] MEDS: FOLIC ACID 1 MG TABLET PO (08:46)
[2023-11-10] MEDS: SPIRONOLACTONE 12.5 MG TABLET PO ×2 (08:46→17:27)
[2023-11-10] MEDS: CHOLECALCIFEROL 1,000 UNITS TABLET 10000 UNITS PO (08:46)
[2023-11-10] MEDS: THIAMINE HCL 100 MG TABLET PO (08:46)
[2023-11-10] MEDS: MULTIVITAMINS THERAPEUTIC TAB (*BKC) 1 TABLET PO (08:46)
[2023-11-10] MEDS: PANTOPRAZOLE 40 MG TABLET PO (08:46)
[2023-11-10] MEDS: calcitrioL 0.25 MCG CAPSULE PO (08:46)
[2023-11-10] MEDS: ACETAMINOPHEN 325 MG TABLET 650 MG PO ×2 (08:52→17:34)
--- NOTE | 2023-11-10 13:06 | WPDONCPN ---
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 Biopsy report reviewed with the patient. I have called Dr. Mcclure at [facility] for transfer patient versus follow-up as outpatient to treat acute myeloid leukemia. I am still waiting to hear back from her. I have discussed treatment with the patient in detail.. - Time Spent With Patient Total time spent is greater than 50% in coordination of care (as documented) at patient's floor/unit and/or counseling patient: 25 - 35 minutes Subjective Interval history: Pancytopenia Review of Systems - Review of Systems Patient lying comfortably. She is complaining of the left knee swelling and discomfort. No bleeding and bruising. She has some tiredness and fatigue. No other new complaints. - Neurologic Reports abnormal gait (with leg pain) Exam Vital signs: Gaetano Ventura. Assessment of coma and impaired consciousness. A practical scale. Lancet 1974; 2:81-4. Narrative: Lungs are clear to auscultation bilaterally Cardiovascular regular rate rhythm no murmurs Abdomen soft nontender nondistended Bowel sounds are positive Extremities left knee swelling noted - Constitutional no acute distress - Routine Neck Exam Absent: lymphadenopathy - Routine Respiratory Exam Present: CTAB - Routine Abdominal Exam Present: normal bowel sounds - Routine Neurological Exam Present: alert, oriented X3 - Routine Psychiatric Exam Present: normal affect PN: Objective Data - Labs CBC & Chem 7: 11/10/23 05:24 11/10/23 05:24 Labs: Laboratory Results - last 24 hr 11/04/23 11/09/23 11/09/23 12:47 07:19 14:17 WBC RBC Hgb 9.3 L D Hct 28.2 L MCV MCH MCHC RDW Plt Count MPV Immature Gran % (Auto) Neut % (Auto) Lymph % (Auto) [place] % (Auto) Eos % (Auto) Baso % (Auto) Lymph # (Auto) [place] # (Auto) Eos # (Auto) Baso # (Auto) Abs Immat Gran (auto) Absolute Neuts (auto) Absolute Nucleated RBC Total Counted Neutrophils % (Manual) Lymphocytes % (Manual) Monocytes % (Manual) Nucleated RBC % Abs Lymphs (Manual) Abs Monocytes (Manual) Nucleated RBCs Platelet Estimate % Immature Plt Fraction Hypochromasia Target Cells Crenated Cell Schistocytes Sodium Potassium Chloride Carbon Dioxide Anion Gap BUN Creatinine Estim Creat Clear Calc Estimated GFR Glucose Calcium Total Bilirubin AST ALT Alkaline Phosphatase Total Protein Albumin Crossmatch See Detail See Detail 11/10/23 05:24 WBC 3.5 L RBC 2.15 L Hgb 7.3 L Hct 22.1 L MCV 102.8 H MCH 34.0 MCHC 33.0 RDW 18.7 H Plt Count 80 L MPV 10.8 H Immature Gran % (Auto) Not Reportable Neut % (Auto) Not Reportable Lymph % (Auto) Not Reportable [place] % (Auto) Not Reportable Eos % (Auto) Not Reportable Baso % (Auto) Not Reportable Lymph # (Auto) Not Reportable [place] # (Auto) Not Reportable Eos # (Auto) Not Reportable Baso # (Auto) Not Reportable Abs Immat Gran (auto) Not Reportable Absolute Neuts (auto) Not Reportable Absolute Nucleated RBC Not Reportable Total Counted 100 Neutrophils % (Manual) 20 L Lymphocytes % (Manual) 44.0 Monocytes % (Manual) 36 H Nucleated RBC % Not Reportable Abs Lymphs (Manual) 1.54 Abs Monocytes (Manual) 1.26 H Nucleated RBCs 2 Platelet Estimate Decreased % Immature Plt Fraction 1.9 Hypochromasia 1+ Target Cells 1+ Crenated Cell 1+ Schistocytes None seen Sodium 132 L Potassium 4.1 Chloride 103 Carbon Dioxide 20 L Anion Gap 9 BUN 41 H Creatinine 2.30 H Estim Creat Clear Calc 20 Estimated GFR 21 L Glucose 127 H Calcium 8.8 Total Bilirubin 0.6 AST 18 ALT 12 Alkaline Phosphatase 78 Tot
--- NOTE | 2023-11-10 14:47 | PM.IMPN ---
Progress Note: A&P Assessment and Plan (1) AML (acute myeloid leukemia): Code(s): C92.00 - Acute myeloblastic leukemia, not having achieved remission Status: Acute Assessment and Plan: official diagnosis per bone marrow biopsy noted, defer management/discussion to heme/onc (2) Pancytopenia: Code(s): D61.818 - Other pancytopenia Status: Acute Assessment and Plan: CBC showed: WBC of 3.5, RBC of 1.22, HGB of 4.6, HCT of 14.8, MCV of 121 3, MCHC of 31.1, RDW of 15.1, platelet count 34. EKG showed sinus tachycardia with rate of 110, low QRS voltage, possible inferior [place] (probably old). Awaiting formal read. CXR showed no acute cardiopulmonary pathology. Unclear etiology. Heme Onc consulted, waiting recs. Iron, TIBC, ferritin, B12, folic acid, and thiamine ordered. Add multivitamin, folic acid, and thiamine. Transfused 2 units. Hemoglobin reassessed 4.8 -> 6.8, will give 3rd unit. Monitor vitals and telemetry. Monitor lab work, add TSH. 11/05: hgb 8.5 today, monitor, plt 25, defer transfusion to heme/onc 11/06: bone marrow bx today, plt 23 11/07: platelet transfusion per heme/onc, bone marrow bx pending 11/08: pancytopenia noted, defer management to heme/onc, d/c pending when stable 11/09: worsening, transfusion given today, awaiting heme/onc recs and bmb results 11/10: hgb increased to 9.3 after transfusion, now back to 7.3, monitor, defer management to heme/onc (3) Weakness: Code(s): R53.1 - Weakness Status: Acute Assessment and Plan: High suspicion for weakness secondary to anemia. Given transfusions. Consider PT/OT eval and treat once hemoglobin stable. May have some degree of deconditioning due to injury to left knee in August. resolved (4) Hematuria: Code(s): R31.9 - Hematuria, unspecified Status: Acute Assessment and Plan: Patient reported hematuria after admission to the floor. Described as bright red. UA: Cloudy, 1+ protein, 3+ blood, 6-10 RBC, otherwise unremarkable. CT of abdomen pelvis without con ordered. Showed bilateral nephrolithiasis. 6 mm renal stone in a presumably chronically mildly dilated right upper pole calyx. No distal stones or evidence of obstructive uropathy. No acute abdominopelvic process detected. Suspect patient passed stone, low suspicion for UTI. Will continue to monitor. resolving (5) Hyponatremia: Code(s): E87.1 - Hypo-osmolality and hyponatremia Status: Acute Assessment and Plan: unchanged, d/c HCTZ (6) Swelling of both lower extremities: Code(s): M79.89 - Other specified soft tissue disorders Status: Acute Assessment and Plan: 1+ pitting edema to bilateral lower extremities. No current shortness of breath or pulmonary edema seen on chest x-ray. BNP elevated at 4090. Echo ordered. No previous on file. Allergy to Lasix. Given that patient will received 3 transfusions and that there was concern for heart failure, start spironolactone as 12.5 b.i.d. monitor daily weights and I&Os. 11/08: worsening, consult to ortho pending for drainage and possible cortisone injection if no concern for infection 11/09: ortho will see patient in office (7) Chronic kidney disease, stage 4 (severe): Code(s): N18.4 - Chronic kidney disease, stage 4 (severe) Status: Acute Assessment and Plan: Creatinine currently 2.4. Baseline creatinine 2.1-2.5 in 2022. GFR 20, ECC 20, BUN 36. Continue home calcitriol. Monitor. 11/05: improving, down to 2, monitor 11/06: worsening, nephro consult pending 11/07: stable, appreciate nephro 11/08: stable Plan Home Meds/Chronic Conditions -GERD: Continue omeprazole -HTN: Continue home lisinopril, hydrochlorothiazide held -OTC/supplements: Continue Tylenol and vitamin D3 Diet: Renal diet GI Prophylaxis: Continuing home omeprazole DVT Prophylaxis: SCDs, pharmacological contraindicated due to current anemia
[2023-11-10] MEDS: traMADol HCL (*CRX) 25 MG TABLET PO (20:27)
[2023-11-11] VITALS: PULSE 91
[2023-11-11 09:53] LABS: Soluble Transferrin Receptor 0.63 mg/L (0.76-1.76)
--- NOTE | 2023-12-05 15:51 | PM.TDS ---
Transfer Discharge Sum: Prov Provider Date of admission: 11/04/23 15:08 Primary care physician: Robin Romo MD Admitting clinician: Marleny Webb MD Consults: 11/04/23 Consult to Physician Routine Comment: consulted at 1703 on 11/04/23. DAKOTAH RUBIO. Consulting Provider: Emery Florence director call center sales/MD group to consult: heme/onc Reason for consultation: pancytopenia, anemia Has provider been notified: Yes 11/06/23 Consult to Physician Routine Comment: Consulting Provider: Evelyn Heaton director call center sales/MD group to consult: nephrology Reason for consultation: ckd, darrin, hyponatremia Has provider been notified: Yes 11/08/23 Consult to Physician Routine Comment: spoke with over the phone at 15:43 Consulting Provider: Jay Beatty director call center sales/MD group to consult: ortho Reason for consultation: left knee pain/effusion, drainage and cortisone injection? Has provider been notified: Yes 11/10/23 Consult to Physician Routine Comment: Consulting Provider: Kelly Anderson director call center sales/MD group to consult: cardiology Reason for consultation: tachycardia Has provider been notified: Yes DS: Admitting Diagnosis Discharge Date 11/11/23 Admitting Diagnosis Shortness of breath DS: Discharge Diagnosis Discharge Diagnosis (1) AML (acute myeloid leukemia): Code(s): C92.00 - Acute myeloblastic leukemia, not having achieved remission Status: Acute Assessment and Plan: official diagnosis per bone marrow biopsy noted, defer management/discussion to heme/onc (2) Pancytopenia: Code(s): D61.818 - Other pancytopenia Status: Acute Assessment and Plan: CBC showed: WBC of 3.5, RBC of 1.22, HGB of 4.6, HCT of 14.8, MCV of 121 3, MCHC of 31.1, RDW of 15.1, platelet count 34. EKG showed sinus tachycardia with rate of 110, low QRS voltage, possible inferior [place] (probably old). Awaiting formal read. CXR showed no acute cardiopulmonary pathology. Unclear etiology. Heme Onc consulted, waiting recs. Iron, TIBC, ferritin, B12, folic acid, and thiamine ordered. Add multivitamin, folic acid, and thiamine. Transfused 2 units. Hemoglobin reassessed 4.8 -> 6.8, will give 3rd unit. Monitor vitals and telemetry. Monitor lab work, add TSH. 11/05: hgb 8.5 today, monitor, plt 25, defer transfusion to heme/onc 11/06: bone marrow bx today, plt 23 11/07: platelet transfusion per heme/onc, bone marrow bx pending 11/08: pancytopenia noted, defer management to heme/onc, d/c pending when stable 11/09: worsening, transfusion given today, awaiting heme/onc recs and bmb results 11/10: hgb increased to 9.3 after transfusion, now back to 7.3, monitor, defer management to heme/onc (3) Weakness: Code(s): R53.1 - Weakness Status: Acute Assessment and Plan: High suspicion for weakness secondary to anemia. Given transfusions. Consider PT/OT eval and treat once hemoglobin stable. May have some degree of deconditioning due to injury to left knee in August. resolved (4) Hematuria: Code(s): R31.9 - Hematuria, unspecified Status: Acute Assessment and Plan: Patient reported hematuria after admission to the floor. Described as bright red. UA: Cloudy, 1+ protein, 3+ blood, 6-10 RBC, otherwise unremarkable. CT of abdomen pelvis without con ordered. Showed bilateral nephrolithiasis. 6 mm renal stone in a presumably chronically mildly dilated right upper pole calyx. No distal stones or evidence of obstructive uropathy. No acute abdominopelvic process detected. Suspect patient passed stone, low suspicion for UTI. Will continue to monitor. resolving (5) Hyponatremia: Code(s): E87.1 - Hypo-osmolality and hyponatremia Status: Chronic Assessment and Plan: unchanged, d/c HCTZ (6) Swelling of both lower extremities: Code(s): M79.89 - Other specified soft tissue disorders Status: Acute Assessment and Pl
== END 2023-11-11 01:55 | disposition short-term general hospital (02) | DRG 809 ==
LOC: ANHED 15:30 → ANH3MED 16:02
PROVIDERS: Nurse Practitioner Family; Radiology Diagnostic Radiology; Student in an Organized Health Care Education/Training Program; Admitting Provider General Practice; Emergency Provider Emergency Medicine; PCP Family Medicine; Visit Provider General Practice
PROC: 079T3ZX Drainage of Bone Marrow, Percutaneous Approach, Diagnostic (ICD-10-PCS; principal; 2023-11-06 10:00)
DX: D61.818 Other pancytopenia (principal); C92.00 Acute myeloblastic leukemia, not having achieved remission; E87.1 Hypo-osmolality and hyponatremia; N18.4 Chronic kidney disease, stage 4 (severe); N20.0 Calculus of kidney; E11.22 Type 2 diabetes mellitus with diabetic chronic kidney disease; I12.9 Hypertensive chronic kidney disease with stage 1 through stage 4 chronic kidney disease, or unspecified chronic kidney disease; R31.9 Hematuria, unspecified; K21.9 Gastro-esophageal reflux disease without esophagitis; Z87.891 Personal history of nicotine dependence; E78.5 Hyperlipidemia, unspecified
CPT/HCPCS: 36415; 36430; 38222; 71046; 73502; 73552; 73560; 74176; 80053; 81001; 82607; 82728; 82746; 83010; 83540; 83550; 83615; 83735; 83880; 83921; 84100; 84238; 84425; 84443; 84466; 85014; 85018; 85025; 85046; 85049; 85055; 86038; 86850; 86880; 86900; 86901; 86923; 88184; 88185; 88305; 88311; 88313; 93005; 93306; 99285; A9270; J1642; J2250; J3010; J7040; J7050; P9016; P9034